=== PATIENT | female | born 1970 | race Caucasian/White ===

== ENCOUNTER 2017-05-02 11:37 | Observation (INO) ==
--- NOTE | 2017-05-02 11:58 | Emergency Department Note ---
Disposition Clinical Impression: Pneumonia Disposition: Admitted As Inpatient Condition: Good General Adult HPI - General Chief complaint: ED General Medical Stated complaint: Body aches and fever Time Seen by Provider: 05/02/17 11:50 Source: patient, family Limitations: no limitations - History of Present Illness Pain Scale: 10 - Related Data Home Medications Medication Instructions Recorded Confirmed ALPRAZolam [Xanax 0.5 MG Tablet] 0.5 mg PO BID PRN 05/02/17 05/02/17 Escitalopram [Lexapro] 20 mg PO BID 05/02/17 05/02/17 Gabapentin [Neurontin] 300 mg PO BID 05/02/17 05/02/17 HYDROcodone/Acet 5/325 mg [[place] 1 tab PO Q6H PRN 05/02/17 05/02/17 5-325 mg] Quetiapine Fumarate [SEROquel] 100 mg PO HS 05/02/17 05/02/17 Allergies Allergy/AdvReac Type Severity Reaction Status Date / Time prochlorperazine AdvReac Vomiting Verified 06/23/16 15:39 [From Compazine] tramadol AdvReac Anxiety Verified 05/02/17 11:40 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, depression 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 - Social History Smoking Status: Current every day smoker Smokeless Tobacco Status: No Alcohol use: Reports: none Drug use: Reports: none Physical Exam - General Limitations: no limitations General appearance: alert, in no apparent distress Course Vital Signs Temperature 99.4 F 05/02/17 11:40 Pulse Rate 111 05/02/17 11:40 Respiratory Rate 17 05/02/17 11:40 Blood Pressure 109/74 05/02/17 11:40 O2 Sat by Pulse Oximetry 94 05/02/17 11:40 Temperature 99.6 F 05/03/17 07:24 Pulse Rate 99 05/03/17 07:24 Respiratory Rate 16 05/03/17 07:24 Blood Pressure 121/83 05/03/17 07:24 O2 Sat by Pulse Oximetry 92 05/03/17 07:24 Oxygen Delivery Oxygen Delivery Room Air Medical Decision Making - Lab Data Result diagrams: 05/03/17 03:09 05/03/17 03:09 Lab Results 06/02/1305/02/17 05/02/17 Range/Units 12:14 12:14 12:14 WBC 7.4 (4.3-11.1) K/mcL RBC 3.90 (3.82-4.97) M/mcL Hgb 12.4 (11.5-15.4) g/dL Hct 36.0 (35.3-44.9) % MCV 92.3 (83.0-100.0) fL MCH 31.8 (28.0-33.3) pg MCHC 34.4 (31.6-35.5) g/dL RDW 13.3 (11.5-14.5) % Plt Count 235 (140-400) K/mcL MPV 8.8 L (9.4-12.4) fL Immature Gran % 0.4 (0-4) % Seg Neutrophils % 71.7 % Lymphocytes % 14.6 % Monocytes % 9.7 % Eosinophils % 3.2 % Basophils % 0.4 % Neutrophils # 5.3 (1.6-8.9) K/mcL Lymphocytes # 1.1 (0.6-4.6) K/mcL Monocytes # 0.7 (0.0-1.3) K/mcL Eosinophils # 0.2 (0.0-0.6) K/mcL Basophils # 0.0 (0.0-0.2) K/mcL Sodium 137 (136-145) mEq/L Potassium 3.9 (3.5-4.5) mEq/L Chloride 106 (98-109) mEq/L Carbon Dioxide 23 (19-29) mEq/L BUN 8 (7-20) mg/dL Creatinine 0.70 (0.57-1.11) mg/dL Est GFR ( Amer) > 60 (> 60) Est GFR (Non-Af Amer) > 60 (> 60) BUN/Creatinine Ratio 11 (6-26) Glucose 107 H (70-99) mg/dL Calculated Osmolality 283 (280-300) Calcium 8.6 (8.6-10.8) mg/dL Magnesium 1.8 (1.6-2.6) mg/dL Total Bilirubin 0.2 (0.2-1.2) mg/dL AST 84 H (5-34) Units/L ALT 82 H (0-55) Units/L Alkaline Phosphatase 172 H (38-126) Units/L Serum Total Protein 7.0 (6.0-8.3) g/dL Albumin 3.3 L (3.5-5.0) g/dL Globulin 3.7 H (2.4-3.5) g/dL Albumin/Globulin Ratio 0.9 L (1.1-2.2) Urine Color (Yellow) Urine Clarity (Clear) Urine pH (5.0-8.0) pH Units Ur Specific [place] (1.010-1.025) Urine Protein (Neg-Trace) mg/dL Urine Glucose (UA) (Normal) mg/dL Urine Ketones (Negative) mg/dL Urine Blood (Negative) Urine Nitrite (Negative) Urine Bilirubin (Negative) Urine Urobilinogen (Normal) mg/dL Ur Leukocyte Esterase (Negative) Urine Microscopic RBC (0-3) per hpf Urine Microscopic WBC (0-3) per hpf Ur Squamous Epith Cells (None-Few) per lpf Urine Bacteria (None-Few) per hpf Hyaline Casts (None-Few) per lpf Ur Culture Indicated? (NO) 05/02/17 Range/Units 13:01 WBC (4.3-11.1) K/mcL RBC (3.82-4.97) M/mcL Hgb (11.5-15.4) g/dL Hct (35.3-44.9) % MCV (83.0-100.0) fL MCH (28.0-33.3) pg MCHC (31.6-35.5) g/dL RDW (11.5-14.5) % Plt Count (140-400) K/mcL MPV (9.4-12.4) fL Immature Gran % (0-4) % Seg Neutrophils % % Lymphocytes % % Monocytes % % Eosinophils % % Basophils % % Neutrophils # (1.6-8.9) K/mcL Lymphocytes # (0.6-4.6) K/mcL Monocytes # (0.0-1.3) K/mcL Eosinophils # (0.0-0.6) K/mcL Basophils # (0.0-0.2) K/mcL Sodium (136-145) mEq/L Potassium (3.5-4.5) mEq/L Chloride (98-109) mEq/L Carbon Dioxide (19-29) mEq/L BUN (7-20) mg/dL Creatinine (0.57-1.11) mg/dL Est GFR ( Amer) (> 60) Est GFR (Non-Af Amer) (> 60) BUN/Creatinine Ratio (6-26) Glucose (70-99) mg/dL Calculated Osmolality (280-300) Calcium (8.6-10.8) mg/dL Magnesium (1.6-2.6) mg/dL Total Bilirubin (0.2-1.2) mg/dL AST (5-34) Units/L ALT (0-55) Units/L Alkaline Phosphatase (38-126) Units/L Serum Total Protein (6.0-8.3) g/dL Albumin (3.5-5.0) g/dL Globulin (2.4-3.5) g/dL Albumin/Globulin Ratio (1.1-2.2) Urine Color Yellow (Yellow) Urine Clarity Cloudy A (Clear) Urine pH 7.0 (5.0-8.0) pH Units Ur Specific [place] 1.010 (1.010-1.025) Urine Protein Negative (Neg-Trace) mg/dL Urine Glucose (UA) Normal (Normal) mg/dL Urine Ketones Negative (Negative) mg/dL Urine Blood Trace H (Negative) Urine Nitrite Negative (Negative) Urine Bilirubin Negative (Negative) Urine Urobilinogen Normal (Normal) mg/dL Ur Leukocyte Esterase Negative (Negative) Urine Microscopic RBC 0-3 (0-3) per hpf Urine Microscopic WBC 3-5 H (0-3) per hpf Ur Squamous Epith Cells Many H (None-Few) per lpf Urine Bacteria Moderate H (None-Few) per hpf Hyaline Casts None Seen (None-Few) per lpf Ur Culture Indicated? NO (NO) Critical Care Time Critical Care Time: Yes Total Critical Care Time: 30 Attestation: Patient presented with cough and fever. She was initially tachycardic and then later hypotensive. She has radiographic pneumonia. Sepsis pathway followed. Attestation Statement - Attestation Attestation: I examined this patient and my medical decision-making was reviewed with the LABEL FOLDER/PA/Advanced Practice Nurse/Resident Physician. I agree with the documented findings, disposition and treatment plan as described except to the extent set forth below. Face to face time provided Patient complains of a 2 day history of fever and body aches. Recent diagnosis of breast cancer but is not currently undergoing chemotherapy. Triage vitals reviewed by me indicating tachycardia and temperature of 99.4. Patient appears in no acute distress on exam
[2017-05-02] MEDS ORDERED: 0.9 % Sodium Chloride 1,000 ML IVC ONE ×2 (11:59→13:24)
[2017-05-02] MEDS ORDERED: Ondansetron 4 MG/2 ML VIAL IVP ONE ×2 (12:10→13:21)
[2017-05-02] MEDS ORDERED: Ketorolac 30 MG/ML VIAL IVP ONE (12:16)
[2017-05-02 12:20] LABS: Basophils % 0.4 %; Eosinophils # 0.2 K/mcL (0.0-0.6); Eosinophils % 3.2 %; Hemoglobin 12.4 g/dL (11.5-15.4); Immature Granulocytes % 0.4 % (0-4); Lymphocytes # 1.1 K/mcL (0.6-4.6); Lymphocytes % 14.6 %; Mean Corpuscular HGB Conc 34.4 g/dL (31.6-35.5); Mean Corpuscular Hemoglobin 31.8 pg (28.0-33.3); Mean Corpuscular Volume 92.3 fL (83.0-100.0); Mean Platelet Volume 8.8 fL (9.4-12.4); Monocytes # 0.7 K/mcL (0.0-1.3); Monocytes % 9.7 %; Neutrophils # 5.3 K/mcL (1.6-8.9); Platelet Count 235 K/mcL (140-400); Red Cell Distribution Width 13.3 % (11.5-14.5); Segmented Neutrophils % 71.7 %
--- NOTE | 2017-05-02 12:29 | Emergency Department Note ---
Disposition Clinical Impression: Pneumonia Qualifiers: Pneumonia type: due to unspecified organism Laterality: right Lung location: lower lobe of lung Qualified Code(s): J18.1 - Lobar pneumonia, unspecified organism Disposition: Admitted As Inpatient Condition: Good General Adult HPI - General Chief complaint: ED General Medical Stated complaint: Body aches and fever Time Seen by Provider: 05/02/17 11:50 Source: patient, family Limitations: no limitations Nursing Notes Reviewed: Yes Vital Signs Reviewed: Yes - History of Present Illness HPI Narrative: Patient here for evaluation of fever and bodyaches. Patient states symptoms started approximately 2 days ago. Patient was seen in ER last night with a negative strep swab. Patient continues to have symptoms and is having more pronounced cough. Patient was recently diagnosed with breast cancer approximately 3 days ago. She had biopsies done in over the phone she was told that it there are positive in needed oncology follow-up. She has a follow-up on for evaluation and likely initiation of chemotherapy. Pain Scale: 10 - Related Data Home Medications Medication Instructions Recorded Confirmed ALPRAZolam [Xanax 0.5 MG Tablet] 0.5 mg PO BID PRN 05/02/17 05/02/17 Escitalopram [Lexapro] 20 mg PO BID 05/02/17 05/02/17 Gabapentin [Neurontin] 300 mg PO BID 05/02/17 05/02/17 HYDROcodone/Acet 5/325 mg [[place] 1 tab PO Q6H PRN 05/02/17 05/02/17 5-325 mg] Allergies Allergy/AdvReac Type Severity Reaction Status Date / Time prochlorperazine AdvReac Vomiting Verified 06/23/16 15:39 [From Compazine] tramadol AdvReac Anxiety Verified 05/02/17 11:40 Review of Systems: CONSTITUTIONAL: Weakness, fatigue, fever, chills No weight loss, HEENT: Eyes: No visual changes. Ears, Nose, Throat: No hearing loss, difficulty talking or unable to swallow. SKIN: No rash or itching. CARDIOVASCULAR: No chest pain, chest pressure or chest discomfort. No palpitations or edema. RESPIRATORY: Cough without productive sputum GASTROINTESTINAL: No anorexia, nausea, vomiting or diarrhea. No abdominal pain or blood. GENITOURINARY: No burning on urination or hematuria. NEUROLOGICAL: No headache, dizziness, syncope, paralysis, ataxia, numbness or tingling in the extremities. No change in bowel or bladder control. MUSCULOSKELETAL: No muscle pain, back pain, joint pain or stiffness. 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 - Social History Smoking Status: Current every day smoker Smokeless Tobacco Status: No Alcohol use: Reports: none Drug use: Reports: none Physical Exam General appearance: NAD, conversant Eyes: anicteric sclerae, moist conjunctivae; PERRL HENT: Atraumatic; oropharynx clear with moist mucous membranes and no mucosal ulcerations Neck: Normal inspection; Trachea midline; FROM, supple Lungs: CTA, with normal respiratory effort and no intercostal retractions CV: RRR, no MRGs Abdomen: Soft, non-tender; no rebound or gaurding Extremities: No peripheral edema or extremity lymphadenopathy Skin: Normal temperature; no rash, ulcers or lesions Psych: Appropriate mood and affect Neuro: alert and oriented to person, place and time - General Limitations: no limitations General appearance: alert, in no apparent distress Course - Reevaluation(s) Reevaluation #1: Patient chest x-ray concerning for pneumonia. Patient has had 2 systolic readings in the 90s. Patient does not appear in distress at this time. However due to her meeting sepsis criteria bolus fluids and other orders regarding sepsis pathway placed by Dr. Woods. - Consultations Consultation #1: Dr. Woods discussed with hospitalist. Patient accepted Vital Signs Temperature 99.4 F 05/02/17 11:40 Pulse Rate 111 05/02/17 11:40 Respiratory Rate 17 05/02/17 11:40 Blood Pressure 109/74 05/02/17 11:40 O2 Sat by Pulse Oximetry 94 05/02/17 11:40 Temperature 99.4 F 05/02/17 11:40 Pulse Rate 89 05/02/17 13:32 Respiratory Rate 18 05/02/17 13:32 Blood Pressure 94/67 05/02/17 13:32 O2 Sat by Pulse Oximetry 96 05/02/17 13:32 Oxygen Delivery Oxygen Delivery Room Air Medical Decision Making - Lab Data Result diagrams: 05/02/17 12:14 05/02/17 12:14 Lab Results 05/02/17 05/02/17 05/02/17 Range/Units 12:14 12:14 12:14 WBC 7.4 (4.3-11.1) K/mcL RBC 3.90 (3.82-4.97) M/mcL Hgb 12.4 (11.5-15.4) g/dL Hct 36.0 (35.3-44.9) % MCV 92.3 (83.0-100.0) fL MCH 31.8 (28.0-33.3) pg MCHC 34.4 (31.6-35.5) g/dL RDW 13.3 (11.5-14.5) % Plt Count 235 (140-400) K/mcL MPV 8.8 L (9.4-12.4) fL Immature Gran % 0.4 (0-4) % Seg Neutrophils % 71.7 % Lymphocytes % 14.6 % Monocytes % 9.7 % Eosinophils % 3.2 % Basophils % 0.4 % Neutrophils # 5.3 (1.6-8.9) K/mcL Lymphocytes # 1.1 (0.6-4.6) K/mcL Monocytes # 0.7 (0.0-1.3) K/mcL Eosinophils # 0.2 (0.0-0.6) K/mcL Basophils # 0.0 (0.0-0.2) K/mcL Sodium 137 (136-145) mEq/L Potassium 3.9 (3.5-4.5) mEq/L Chloride 106 (98-109) mEq/L Carbon Dioxide 23 (19-29) mEq/L BUN 8 (7-20) mg/dL Creatinine 0.70 (0.57-1.11) mg/dL Est GFR ( Amer) > 60 (> 60) Est GFR (Non-Af Amer) > 60 (> 60) BUN/Creatinine Ratio 11 (6-26) Glucose 107 H (70-99) mg/dL Calculated Osmolality 283 (280-300) Calcium 8.6 (8.6-10.8) mg/dL Magnesium 1.8 (1.6-2.6) mg/dL Total Bilirubin 0.2 (0.2-1.2) mg/dL AST 84 H (5-34) Units/L ALT 82 H (0-55) Units/L Alkaline Phosphatase 172 H (38-126) Units/L Serum Total Protein 7.0 (6.0-8.3) g/dL Albumin 3.3 L (3.5-5.0) g/dL Globulin 3.7 H (2.4-3.5) g/dL Albumin/Globulin Ratio 0.9 L (1.1-2.2) Urine Color (Yellow) Urine Clarity (Clear) Urine pH (5.0-8.0) pH Units Ur Specific [place] (1.010-1.025) Urine Protein (Neg-Trace) mg/dL Urine Glucose (UA) (Normal) mg/dL Urine Ketones (Negative) mg/dL Urine Blood (Negative) Urine Nitrite (Negative) Urine Bilirubin (Negative) Urine Urobilinogen (Normal) mg/dL Ur Leukocyte Esterase (Negative) Urine Microscopic RBC (0-3) per hpf Urine Microscopic WBC (0-3) per hpf Ur Squamous Epith Cells (None-Few) per lpf Urine Bacteria (None-Few) per hpf Hyaline Casts (None-Few) per lpf Ur Culture Indicated? (NO) 05/02/17 Range/Units 13:01 WBC (4.3-11.1) K/mcL RBC (3.82-4.97) M/mcL Hgb (11.5-15.4) g/dL Hct (35.3-44.9) % MCV (83.0-100.0) fL MCH (28.0-33.3) pg MCHC (31.6-35.5) g/dL RDW (11.5-14.5) % Plt Count (140-400) K/mcL MPV (9.4-12.4) fL Immature Gran % (0-4) % Seg Neutrophils % % Lymphocytes % % Monocytes % % Eosinophils % % Basophils % % Neutrophils # (1.6-8.9) K/mcL Lymphocytes # (0.6-4.6) K/mcL Monocytes # (0.0-1.3) K/mcL Eosinophils # (0.0-0.6) K/mcL Basophils # (0.0-0.2) K/mcL Sodium (136-145) mEq/L Potassium (3.5-4.5) mEq/L Chloride (98-109) mEq/L Carbon Dioxide (19-29) mEq/L BUN (7-20) mg/dL Creatinine (0.57-1.11) mg/dL Est GFR ( Amer) (> 60) Est GFR (Non-Af Amer) (> 60) BUN/Creatinine Ratio (6-26) Glucose (70-99) mg/dL Calculated Osmolality (280-300) Calcium (8.6-10.8) mg/dL Magnesium (1.6-2.6) mg/dL Total Bilirubin (0.2-1.2) mg/dL AST (5-34) Units/L ALT (0-55) Units/L Alkaline Phosphatase (38-126) Units/L Serum Total Protein (6.0-8.3) g/dL Albumin (3.5-5.0) g/dL Globulin (2.4-3.5) g/dL Albumin/Globulin Ratio (1.1-2.2) Urine Color Yellow (Yellow) Urine Clarity Cloudy A (Clear) Urine pH 7.0 (5.0-8.0) pH Units Ur Specific [place] 1.010 (1.010-1.025) Urine Protein Negative (Neg-Trace) mg/dL Urine Glucose (UA) Normal (Normal) mg/dL Urine Ketones Negative (Negative) mg/dL Urine Blood Trace H (Negative) Urine Nitrite Negative (Negative) Urine Bilirubin Negative (Negative) Urine Urobilinogen Normal (Normal) mg/dL Ur Leukocyte Esterase Negative (Negative) Urine Microscopic RBC 0-3 (0-3) per hpf Urine Microscopic WBC 3-5 H (0-3) per hpf Ur Squamous Epith Cells Many H (None-Few) per lpf Urine Bacteria Moderate H (None-Few) per hpf Hyaline Casts None Seen (None-Few) per lpf Ur Culture Indicated? NO (NO)
[2017-05-02 12:33] LABS: Alanine Aminotransferase 82 Units/L (0-55); Albumin 3.3 g/dL (3.5-5.0); Albumin/Globulin Ratio 0.9 (1.1-2.2); Alkaline Phosphatase 172 Units/L (38-126); Aspartate Amino Transferase 84 Units/L (5-34); BUN/Creatinine Ratio 11 (6-26); Bilirubin,Total 0.2 mg/dL (0.2-1.2); Blood Urea Nitrogen 8 mg/dL (7-20); Calcium 8.6 mg/dL (8.6-10.8); Carbon Dioxide 23 mEq/L (19-29); Chloride 106 mEq/L (98-109); Globulin 3.7 g/dL (2.4-3.5); Glucose 107 mg/dL (70-99); Osmolality,Calculated 283 (280-300); Potassium 3.9 mEq/L (3.5-4.5); Sodium 137 mEq/L (136-145); eGFR For African Americans > 60 (> 60); eGFR For Non-African Americans > 60 (> 60)
[2017-05-02 13:12] LABS: Bilirubin,Urine Negative (Negative); Blood,Urine Trace (Negative); Clarity,Urine Cloudy (Clear); Color,Urine Yellow (Yellow); Glucose,Urine (UA) Normal (Normal); Ketones,Urine Negative (Negative); Leukocyte Esterase,Urine Negative (Negative); Nitrite,Urine Negative (Negative); Protein,Urine Negative (Neg-Trace); Urobilinogen,Urine Normal (Normal)
[2017-05-02 13:15] LABS: Bacteria,Urine Moderate per hpf (None-Few); Hyaline Casts,Urine None Seen per lpf (None-Few); RBC,Urine 0-3 per hpf (0-3); Squamous Epithelial Cell,Urine Many per lpf (None-Few)
[2017-05-02] MEDS ORDERED: *HR* HYDROmorphone (PF) 1 MG/ML SYRINGE IVP ONE (13:21)
[2017-05-02] MEDS ORDERED: Levofloxacin 750 MG/150 ML 750 MG/150 ML BAG IVPB ONE (13:24)
[2017-05-02] MEDS ORDERED: Naloxone 0.4 MG/ML INJ IVP PRN (13:59)
[2017-05-02] MEDS ORDERED: Ondansetron ODT 4 MG TAB.RAPDIS SL PRN (13:59)
[2017-05-02] MEDS ORDERED: *HR* HYDROcodone/Acet 5/325 mg TABLET PO PRN (13:59)
--- NOTE | 2017-05-02 14:39 | Internal Med History&Physical ---
<Jae Noonan P - Last Filed: 05/02/17 16:40> Date of Encounter: 05/02/17 Internal Medicine - H&P: HPI History of present illness: Ms. Sarkar is a 46 year old female Internal Medicine - H&P: Meds ALPRAZolam [Xanax 0.5 MG Tablet] 0.5 mg PO BID PRN 05/02/17 [History] Escitalopram [Lexapro] 20 mg PO BID 05/02/17 [History] Gabapentin [Neurontin] 300 mg PO BID 05/02/17 [History] HYDROcodone/Acet 5/325 mg [[place] 5-325 mg] 1 tab PO Q6H PRN 05/02/17 [History] Quetiapine Fumarate [SEROquel] 100 mg PO HS 05/02/17 [History] Allergies prochlorperazine [From Compazine] Adverse Reaction (Verified 06/23/16 15:39) Vomiting tramadol Adverse Reaction (Verified 05/02/17 11:40) Anxiety All Systems PM: A 10-system review of systems was performed and is negative for pertinent findings except as documented above in the HPI. - Constitutional Vitals: Temp Pulse Resp BP Pulse Ox 98.1 F 81 13 101/68 93 05/02/17 15:07 05/02/17 15:07 05/02/17 15:07 05/02/17 15:07 05/02/17 15:07 Internal Med - H&P Results - Labs CBC & Chem 7: 05/02/17 12:14 05/02/17 12:14 - Attending Attestation I examined this patient and my medical decision-making was reviewed with the SCIENCE FACULTY MEMBER/PA/Advanced Practice Nurse/Resident Physician. I agree with the documented findings, disposition and treatment plan as described except to the extent set forth below. <Daisy Carias M - Last Filed: 05/02/17 22:48> Date of Encounter: 05/02/17 Time of Encounter: 14:35 Assessment and Plan (1) Pneumonia Current visit: Yes Status: Acute Patient presented with fever, cough and body aches x 2 days. CXR showed RLL airspace disease favoring pneumonia. Patient mildly tachycardic. Blood pressure running 90s-100s/60-70s, but review of previous shows her blood pressure usually runs in this range. WBC normal at 7.4. 2L fluid bolus given in ED as well as Levaquin Levaquin 500mg IVP daily IV fluids 0.9NS at 100mL/hr duoneb treatments Q6hr prednisone 40mg daily titrate O2 to maintain oxygen saturation > 92%. Qualifiers: Pneumonia type: due to unspecified organism Laterality: right Lung location: lower lobe of lung Qualified Code(s): J18.1 - Lobar pneumonia, unspecified organism (2) Smoker Current visit: Yes Status: Acute Patient continues to smoke 1PPD. Discussed smoking cessation, patient would like to try to quit. Offered encouragement. Smoking cessation education and nicotine patch ordered. (3) Breast cancer Current visit: Yes Status: Acute Patient with recently diagnosed breast cancer, reportedly metastatic to lymph nodes. She has appointment scheduled on for discussion regarding treatment. Qualifiers: Breast location: unspecified site of breast Patient sex: female Laterality: left Qualified Code(s): C50.912 - Malignant neoplasm of unspecified site of left female breast (4) DVT prophylaxis Current visit: Yes Status: Acute anti-embolic stockings. Heparin 5000u SQ TID Internal Medicine - H&P: HPI Chief complaint: cough, fever, body aches Admitted From: Emergency Dept Plans for Post Hospital Care: Home History of present illness: Ms. Sarkar is a 46 year old female with history of kidney cancer status post surgical excision, recently diagnosed breast cancer presented to the emergency department today with complaints of cough, fever, and body aches. Patient reports that for the last 2 days she has had a nonproductive cough, fever, chills, body aches, and lightheadedness. She reports poor appetite, headache, and shortness of breath. She denies any chest pain, palpitations. Patient was seen in urgent care yesterday and was diagnosed with viral illness. Of note, patient has had a recent breast mass biopsy, and was told 2 days ago she has breast cancer and will need to have chemotherapy, and has an appointment on for this discussion. Evaluation in the emergency department today included a chest x-ray that showed right lower lobe airspace disease consistent with pneumonia. She is mildly tachycardic with heart rate in the 90s, blood pressure range 90 over 60s to 100s over 70s. White blood cell count was normal at 7.4. She was given 2 L of fluid bolus and started on Levaquin. On exam, patient alert and oriented, in no acute distress. Heart has regular rate and rhythm. Lungs have scattered fine crackles. Abdomen is diffusely mildly tender. Past Med Surg Social Fam HX - Past Medical History Medical history: cancer (kidney cancer s/p surgical excision, newly diagnosed breast cancer), renal disease, other Psychiatric history: bipolar, depression - Past Surgical History Surgical History: appendectomy, breast surgery (biopsy), cancer surgery (Renal cell carcinoma excision) - Social History Smoking Status: Current every day smoker (30 pack year history) Packs per day: 1 Smokeless Tobacco Status: No Alcohol use: none Drug use: none - Family History Mother Living Status: Still Living Hx Family Cardiac Disorders: Yes (CVA) Father Living Status: Still Living Hx Family Cancer: Yes All Systems PM: A 10-system review of systems was performed and is negative for pertinent findings except as documented above in the HPI. - Constitutional Constitutional: anorexia, chills, fever(s), no night sweats - EENT Eyes: no change in vision, no discharge, no pain, no photophobia Ears: no ear discharge, no ear pain, no tinnitus Nose, mouth and throat: nasal discharge, no dysphagia, no neck pain, no sore throat - Cardiovascular Cardiovascular ROS IM: dyspnea, lightheadedness, no chest pain, no diaphoresis, no palpitations, no syncope - Respiratory Respiratory: cough, dyspnea, no wheezing, no excessive phlegm production - Gastrointestinal Gastrointestinal: no abdominal pain, no diarrhea, no hematemesis, no hematochezia, no melena, no nausea, no vomiting - Genitourinary Genitourinary: no change in urinary stream, no dysuria, no flank pain, no hematuria - Musculoskeletal Musculoskeletal ROS IM: no numbness, no tingling - Integumentary Integumentary IM: no rash, no unusual bruising - Neurological Neurological ROS: no confusion, no convulsions, no focal weakness, no numbness, no tingling, no tremor(s) - Hematologic/Lymphatic Hematologic/Lymphatic: no easy bruising - Constitutional Vitals: Temp Pulse Resp BP Pulse Ox 99.4 F 89 18 102/72 96 05/02/17 11:40 05/02/17 13:32 05/02/17 14:26 05/02/17 14:26 05/02/17 13:32 General appearance: Present: A&O X 3, pleasant, no acute distress - Head Head exam: Present: atraumatic, normocephalic - Eye Eye exam: Present: PERRL, conjuntiva pink, sclera anicteric Pupils: Present: PERRL - Neck Neck exam general surgery: Present: supple, trachea midline. Absent: lymphadenopathy - Respiratory Respiratory exam: Present: rales (mild, scattered). Absent: accessory muscle use, rhonchi, wheezes - Cardiovascular Cardiovascular exam: Present: RRR, +S1, +S2. Absent: diastolic murmur, gallop, rubs, systolic murmur - GI/Abdominal GI/Abdominal exam: Present: normal bowel sounds, soft, tenderness (mild, diffuse ), no peritoneal signs. Absent: distended - Extremities Exam Extremities exam: Present: warm, radial pulses palpable and symetrical. Absent : calf tenderness, cyanotic, pedal edema - Neurological Exam Neurological exam: Present: CN II-XII intact, oriented X3, no focal deficits. Absent: facial droop, speech deficit - Skin Skin exam: Present: dry, intact Internal Med - H&P Results - Labs CBC & Chem 7: 05/02/17 12:14 05/02/17 12:14 Labs: All Lab Results (24 Hours) 05/02/17 05/02/17 05/02/17 Range/Units 12:14 12:14 12:14 WBC 7.4 (4.3-11.1) K/mcL RBC 3.90 (3.82-4.97) M/mcL Hgb 12.4 (11.5-15.4) g/dL Hct 36.0 (35.3-44.9) % MCV 92.3 (83.0-100.0) fL MCH 31.8 (28.0-33.3) pg MCHC 34.4 (31.6-35.5) g/dL RDW 13.3 (11.5-14.5) % Plt Count 235 (140-400) K/mcL MPV 8.8 L (9.4-12.4) fL Immature Gran % 0.4 (0-4) % Seg Neutrophils % 71.7 % Lymphocytes % 14.6 % Monocytes % 9.7 % Eosinophils % 3.2 % Basophils % 0.4 % Neutrophils # 5.3 (1.6-8.9) K/mcL Lymphocytes # 1.1 (0.6-4.6) K/mcL Monocytes # 0.7 (0.0-1.3) K/mcL Eosinophils # 0.2 (0.0-0.6) K/mcL Basophils # 0.0 (0.0-0.2) K/mcL Sodium 137 (136-145) mEq/L Potassium 3.9 (3.5-4.5) mEq/L Chloride 106 (98-109) mEq/L Carbon Dioxide 23 (19-29) mEq/L BUN 8 (7-20) mg/dL Creatinine 0.70 (0.57-1.11) mg/dL Est GFR ( Amer) > 60 (> 60) Est GFR (Non-Af Amer) > 60 (> 60) BUN/Creatinine Ratio 11 (6-26) Glucose 107 H (70-99) mg/dL Calculated Osmolality 283 (280-300) Calcium 8.6 (8.6-10.8) mg/dL Magnesium 1.8 (1.6-2.6) mg/dL Total Bilirubin 0.2 (0.2-1.2) mg/dL AST 84 H (5-34) Units/L ALT 82 H (0-55) Units/L Alkaline Phosphatase 172 H (38-126) Units/L Serum Total Protein 7.0 (6.0-8.3) g/dL Albumin 3.3 L (3.5-5.0) g/dL Globulin 3.7 H (2.4-3.5) g/dL Albumin/Globulin Ratio 0.9 L (1.1-2.2) Urine Color (Yellow) Urine Clarity (Clear) Urine pH (5.0-8.0) pH Units Ur Specific [place] (1.010-1.025) Urine Protein (Neg-Trace) mg/dL Urine Glucose (UA) (Normal) mg/dL Urine Ketones (Negative) mg/dL Urine Blood (Negative) Urine Nitrite (Negative) Urine Bilirubin (Negative) Urine Urobilinogen (Normal) mg/dL Ur Leukocyte Esterase (Negative) Urine Microscopic RBC (0-3) per hpf Urine Microscopic WBC (0-3) per hpf Ur Squamous Epith Cells (None-Few) per lpf Urine Bacteria (None-Few) per hpf Hyaline Casts (None-Few) per lpf Ur Culture Indicated? (NO) 05/02/17 Range/Units 13:01 WBC (4.3-11.1) K/mcL RBC (3.82-4.97) M/mcL Hgb (11.5-15.4) g/dL Hct (35.3-44.9) % MCV (83.0-100.0) fL MCH (28.0-33.3) pg MCHC (31.6-35.5) g/dL RDW (11.5-14.5) % Plt Count (140-400) K/mcL MPV (9.4-12.4) fL Immature Gran % (0-4) % Seg Neutrophils % % Lymphocytes % % Monocytes % % Eosinophils % % Basophils % % Neutrophils # (1.6-8.9) K/mcL Lymphocytes # (0.6-4.6) K/mcL Monocytes # (0.0-1.3) K/mcL Eosinophils # (0.0-0.6) K/mcL Basophils # (0.0-0.2) K/mcL Sodium (136-145) mEq/L Potassium (3.5-4.5) mEq/L Chloride (98-109) mEq/L Carbon Dioxide (19-29) mEq/L BUN (7-20) mg/dL Creatinine (0.57-1.11) mg/dL Est GFR ( Amer) (> 60) Est GFR (Non-Af Amer) (> 60) BUN/Creatinine Ratio (6-26) Glucose (70-99) mg/dL Calculated Osmolality (280-300) Calcium (8.6-10.8) mg/dL Magnesium (1.6-2.6) mg/dL Total Bilirubin (0.2-1.2) mg/dL AST (5-34) Units/L ALT (0-55) Units/L Alkaline Phosphatase (38-126) Units/L Serum Total Protein (6.0-8.3) g/dL Albumin (3.5-5.0) g/dL Globulin (2.4-3.5) g/dL Albumin/Globulin Ratio (1.1-2.2) Urine Color Yellow (Yellow) Urine Clarity Cloudy A (Clear) Urine pH 7.0 (5.0-8.0) pH Units Ur Specific [place] 1.010 (1.010-1.025) Urine Protein Negative (Neg-Trace) mg/dL Urine Glucose (UA) Normal (Normal) mg/dL Urine Ketones Negative (Negative) mg/dL Urine Blood Trace H (Negative) Urine Nitrite Negative (Negative) Urine Bilirubin Negative (Negative) Urine Urobilinogen Normal (Normal) mg/dL Ur Leukocyte Esterase Negative (Negative) Urine Microscopic RBC 0-3 (0-3) per hpf Urine Microscopic WBC 3-5 H (0-3) per hpf Ur Squamous Epith Cells Many H (None-Few) per lpf Urine Bacteria Moderate H (None-Few) per hpf Hyaline Casts None Seen (None-Few) per lpf Ur Culture Indicated? NO (NO) - Diagnostic Studies Chest x-ray Additional comments: Chest X-Ray 05/02/17 12:09 IMPRESSION: 1. Right lower lobe airspace disease favoring pneumonia. Recommend chest radiograph in 8 weeks to confirm resolution. D/ / Duglas Sampson MD / Duglas Sampson MD Interpreting Provider: Duglas Sampson MD
[2017-05-02] MEDS: *HR* HYDROcodone/Acet 5/325 mg TABLET PO PRN ×2 (16:11→22:13)
[2017-05-02] MEDS: Nicotine 21 MG PATCH.TD24 TD SCH (16:13)
[2017-05-02] MEDS: *HR* Morphine 2 MG/ML SYRINGE IVP PRN ×2 (17:04→21:17)
[2017-05-02] MEDS: ALPRAZolam 0.5 MG TABLET PO PRN (17:16)
[2017-05-02] MEDS: Ipratropium/Albuterol Neb 3 ML IH SCH ×2 (17:32→22:45)
[2017-05-02] MEDS: 0.9 % Sodium Chloride 1,000 ML IVC SCH (17:50)
[2017-05-02] MEDS: Acetaminophen 325 MG TABLET PO PRN (19:36)
[2017-05-02] MEDS: Gabapentin 300 MG CAPSULE PO SCH (20:55)
[2017-05-03] MEDS: *HR* HYDROmorphone 2 MG/ML SYRINGE IVP PRN ×3 (01:20→18:25)
[2017-05-03] MEDS: Acetaminophen 325 MG TABLET PO PRN ×2 (01:43→23:29)
[2017-05-03] MEDS: 0.9 % Sodium Chloride 1,000 ML IVC SCH ×2 (03:24→17:47)
[2017-05-03] MEDS: ALPRAZolam 0.5 MG TABLET PO PRN ×2 (03:28→16:31)
[2017-05-03] MEDS: Ipratropium/Albuterol Neb 3 ML IH SCH ×4 (03:36→22:08)
[2017-05-03 03:44] LABS: Basophils % 0.6 %; Eosinophils # 0.1 K/mcL (0.0-0.6); Hematocrit 33.7 % (35.3-44.9); Hemoglobin 11.1 g/dL (11.5-15.4); Immature Granulocytes % 0.3 % (0-4); Lymphocytes # 1.1 K/mcL (0.6-4.6); Mean Corpuscular HGB Conc 32.9 g/dL (31.6-35.5); Mean Corpuscular Hemoglobin 31.5 pg (28.0-33.3); Mean Corpuscular Volume 95.7 fL (83.0-100.0); Mean Platelet Volume 9.4 fL (9.4-12.4); Monocytes # 0.6 K/mcL (0.0-1.3); Monocytes % 7.8 %; Neutrophils # 5.2 K/mcL (1.6-8.9); Platelet Count 200 K/mcL (140-400); Red Blood Count 3.52 M/mcL (3.82-4.97); Red Cell Distribution Width 13.8 % (11.5-14.5); Segmented Neutrophils % 73.3 %
[2017-05-03 03:59] LABS: BUN/Creatinine Ratio 9 (6-26); Blood Urea Nitrogen 7 mg/dL (7-20); Calcium 7.8 mg/dL (8.6-10.8); Carbon Dioxide 27 mEq/L (19-29); Chloride 108 mEq/L (98-109); Glucose 95 mg/dL (70-99); Osmolality,Calculated 288 (280-300); Potassium 4.1 mEq/L (3.5-4.5); Sodium 140 mEq/L (136-145); eGFR For African Americans > 60 (> 60); eGFR For Non-African Americans > 60 (> 60)
[2017-05-03] MEDS: *HR* HYDROcodone/Acet 5/325 mg TABLET PO PRN ×2 (06:20→13:32)
[2017-05-03] MEDS: Nicotine 21 MG PATCH.TD24 TD SCH (07:47)
[2017-05-03] MEDS: Levofloxacin 500 MG/100 ML 500 MG/100 ML BAG IVPB SCH (07:48)
[2017-05-03] MEDS: predniSONE 20 MG TABLET PO SCH (07:49)
[2017-05-03] MEDS: Gabapentin 300 MG CAPSULE PO SCH ×2 (07:49→20:47)
[2017-05-03] MEDS ORDERED: Ketorolac 30 MG/ML VIAL IVP ONE (10:39)
[2017-05-03] MEDS ORDERED: *HR* Promethazine 25 MG/ML VIAL IVP PRN (10:40)
[2017-05-03] MEDS ORDERED: Ondansetron 4 MG/2 ML VIAL IVP PRN (10:41)
[2017-05-03] MEDS ORDERED: *HR* LORazepam 2 MG/ML VIAL IVP PRN (10:41)
--- NOTE | 2017-05-03 11:06 | Internal Med Progress Note ---
Date of Encounter: 05/03/17 Time of Encounter: 10:15 - Assessment and plan (1) Breast cancer Current Visit: Yes Status: Acute Assessment and plan: This is a new diagnosis for the patient. She is scheduled to followup with surgery Dr Davies later this week to discuss possible treatments. I have spoke to Oncology Dr Santos who recommended scanning the patient's head, chest, abdomen and he will see her in consultation tomorrow. Patient currently has a severe headache that has been refractory to pain medication. She also has transaminitis which is new for her. Plain films of chest also revealed possible pneumonia to right lower lobe, CT of ordered for better imaging. It is Thursday and MRI is not available, we will proceed with head CT. Brain MRI tomorrow if indicated. Qualifiers: Breast location: unspecified site of breast Patient sex: female Laterality: left Qualified Code(s): C50.912 - Malignant neoplasm of unspecified site of left female breast (2) Pneumonia Current Visit: Yes Status: Acute Assessment and plan: No recent admissions, continue levofloxacin. Plain films with right lower lobe pneumonia, obtain a chest CT for better imaging. She is tolerating room air at this time. She also appears to have a lengthy smoking history but has not been formally diagnosed with COPD. Continue bronchodilators and prednisone. ITS Impressions Chest X-Ray 05/02/17 12:09 IMPRESSION: 1. Right lower lobe airspace disease favoring pneumonia. Recommend chest radiograph in 8 weeks to confirm resolution. D/ / Duglas Sampson MD / Duglas Sampson MD Interpreting Provider: Duglas Sampson MD Qualifiers: Pneumonia type: due to unspecified organism Laterality: right Lung location: lower lobe of lung Qualified Code(s): J18.1 - Lobar pneumonia, unspecified organism (3) Headache Current Visit: Yes Status: Acute Assessment and plan: Patient is endorsing a severe, intractable headache. She states that a lot of takes the edge off but then the headache comes back severe. She states her whole head hurts and she is having sharp, stabbing pain to the left side. Patient states she always has blurred vision without her glasses and denies a change to her vision. She is endorsing photo and phonophobia. She is lying supine in bed with TV off and light off in her room. She appears miserable. We will give migraine cocktail, Compazine allergy noted, we will substitute Phenergan combined with Toradol and diphenhydramine. Continue pain and nausea medication. Given her history of kidney cancer and recent diagnosis of breast cancer, concern for possible metastasis. Head CT with contrast ordered. Cannot get brain MRI on Thursday, if indicated tomorrow, will order. (4) Renal cell carcinoma of right kidney Current Visit: Yes Status: Resolved Assessment and plan: Patient had renal cell carcinoma in her right kidney status post right-sided partial nephrectomy in 2013. She stated that she followed up for repeat scans and was cleared shortly after the surgery. No further scans or follow-up. (5) History of prescription drug abuse Current Visit: Yes Status: Chronic Assessment and plan: In review of her chart in [facility], patient has a very lengthy history of removal from primary care practices for controlled substance prescription issues. She was removed from Dr Juan Estrada's practice in 2011 after an incident from an allegedly stolen prescription of Percocet. She was also removed from Dr. Lan Miranda in 2012 regarding activities about controlled substances. She is also earlier this year and November 2016 by Keny Stanley of [facility] and he left a message for her to no longer receive Percocet or Vicodin prescriptions. (6) Anxiety Current Visit: Yes Status: Chronic Assessment and plan: Her home Xanax is not working and the patient is incredibly upset. IV lorazepam as needed for breakthrough anxiety. (7) Transaminitis Current Visit: Yes Status: Acute Assessment and plan: This appears new for this patient. With her history of renal cell carcinoma and newly diagnosed breast cancer, concern for possible metastasis. Spoke to oncology, will scan head, chest, abdomen. (8) Smoker Current Visit: Yes Status: Chronic Assessment and plan: Declines counseling at this time. (9) DVT prophylaxis Current Visit: Yes Status: Acute Assessment and plan: Subcutaneous heparin ordered - Time Spent With Patient Greater than 35 minutes (chart review, conversation with ileana and margy, c/s to oncology) - Subjective Interval history: Patient seen and examined. On examination, patient resting supine in bed with her eyes closed. She is awake and alert and oriented 3. She complains of a severe headache described as pain all over her head but with sharp stabbing pains to the left side of her head. She is also endorsing nausea. Patient stating she is miserable. She states the Dilaudid took the edge off for a little bit but "the pain came right back." - Constitutional Vitals: Temp Pulse Resp BP Pulse Ox 98.7 F 92 16 115/74 96 05/03/17 10:53 05/03/17 10:53 05/03/17 10:53 05/03/17 10:53 05/03/17 10:53 General appearance: Present: mild distress (2/2 pain), A&O X 3, pleasant, answers questions appropriately - Head Head exam: Present: atraumatic, normocephalic - Eye Eye exam: Present: PERRL, conjuntiva pink, sclera anicteric Pupils: Present: PERRL - Neck Neck exam general surgery: Present: supple, trachea midline. Absent: lymphadenopathy - Respiratory Respiratory exam: Present: chest wall tenderness, decreased breath sounds. Absent: accessory muscle use, rales, respiratory distress, rhonchi, wheezes - Cardiovascular Cardiovascular exam: Present: RRR, +S1, +S2. Absent: diastolic murmur, gallop, rubs, systolic murmur - GI/Abdominal GI/Abdominal exam: Present: normal bowel sounds, soft, no peritoneal signs. Absent: distended, tenderness - Extremities Exam Extremities exam: Present: warm, radial pulses palpable and symetrical. Absent : calf tenderness, cyanotic, pedal edema - Neurological Exam Neurological exam: Present: alert, CN II-XII intact, oriented X3, no focal deficits, strengths equal and symetr throughout. Absent: pronater drift, facial droop, speech deficit - Skin Skin exam: Present: diaphoretic, intact, pallor, warm Internal Medicine: Result - Labs CBC & Chem 7: 05/03/17 03:09 05/03/17 03:09 Labs: Short CBC 05/03/17 Range/Units 03:09 WBC 7.1 (4.3-11.1) K/mcL Hgb 11.1 L (11.5-15.4) g/dL Hct 33.7 L (35.3-44.9) % Plt Count 200 (140-400) K/mcL Neutrophils # 5.2 (1.6-8.9) K/mcL BMP 05/03/17 03:09 Sodium 140 Potassium 4.1 Chloride 108 Carbon Dioxide 27 BUN 7 Creatinine 0.78 Glucose 95 Calcium 7.8 L - Impressions Impressions Head CT 05/02/17 14:16 IMPRESSION: No evidence of acute intracranial abnormality. If clinical symptomatology persists, follow-up MRI examination may be helpful for more complete evaluation. D/ / 05/02/2017 17:00:15 Mahamed Henderson MD / earnold Interpreting Provider: Mahamed Henderson MD Consult Discharge Plan - Plan Referrals: NO,PCP [Primary Care Provider] -
--- NOTE | 2017-05-03 12:58 | Oncology Inp Consult Note ---
Date of Encounter: 05/03/17 Time of Encounter: 12:35 - Data of Consult Patient: new to practice Consult date: 05/03/17 Requesting Physician: Eva Casas Primary Care Provider: PCP NO - Consult Narrative Reason for consult: Unexplained headaches, newly diagnosed breast cancer. History of present illness: Ms. Sarkar is a 46 year old who is currently hospitalized with generalized, multisystem symptoms including headaches. She is new to oncology. She has recently been diagnosed with breast cancer based on biopsy from 04/28/17 which showed a grade 3 invasive ductal carcinoma in a 3:00 left breast lesion as well as left axillary node. Tumor is ER/NC negative and HER-2 equivocal. FISH testing is pending. She initially presented to the emergency room with a self palpated left breast mass and had a chest CT 04/24/[address] Davies which revealed a 3.6 cm mass in the lateral aspect of the left breast associated with axillary lymphadenopathy concerning for breast malignancy. There was additional concern about a 5 mm noncalcified left lower lobe nodule which is stable since 2013 and possibly benign. There is stable left adrenal gland adenoma. Nondisplaced, subacute-appearing fracture in the lateral aspect of the right sixth rib. She subsequently had dedicated breast imaging and a breast biopsy from 04/28/17 which is noted above. She had a second biopsy of the right breast 8:00 lesion on 05/01/17 and pathology is pending. She has discussed the results of her positive biopsy with Dr. Davies and per patient, plan is for her to be seen in the multidisciplinary breast clinic next . Patient is currently hospitalized for generalized multisystem symptoms including general body aches, intractable headaches, cough, fever. Oncology is consulted re: evolution and recommendations for management of patient with generalized multisystem symptoms in the setting of recently diagnosed breast cancer. Eva Esquivel [employer] CONTAINER FILLER with Hospital team was kind enough the discussed patient's case with me regarding consult question. Patient seen and examined at bedside with present. She continues to have generalized multisystem symptoms predominantly pain which is mostly in her back in addition to ongoing headaches. I reviewed her records extensively for details of clinical background and ongoing care by hospital team. Noncontrast head CT on admission was negative for intracranial abnormality. She is scheduled for systemic imaging later today. On reviewing her records, she evidently had a history of right-sided kidney cancer and had a right partial nephrectomy by Dr. Napoles in December 2013 which confirmed a 1 cm, Karon grade 3, clear cell kidney cancer. T1a likely stage I with no other high risk features. Her most recent abdomen CT from 07/10/16 did not show any evidence of recurrent or residual malignancy. Rest of past medical, surgical, family, social history detailed below and verified with patient today. Review of systems: 12 point review of systems performed with patient and positive findings noted in history of present illness. All other systems are negative: Physical exam: Vital Signs Temp 98.7 F 05/03/17 10:53 Pulse 92 05/03/17 10:53 Resp 16 05/03/17 10:53 BP 115/74 05/03/17 10:53 Pulse Ox 96 05/03/17 10:53 GENERAL: Alert and oriented, acutely ill appearing. Mental Status: Affect appropriate for circumstances HEENT: Sclerae anicteric. No mucositis or thrush. No other oral or pharyngeal lesions or erythema. Skin: No rashes or petechiae. No evidence of skin malignancy Lymph nodes: No cervical, supraclavicular, axillary, or inguinal adenopathy. Lungs: Clear to auscultation bilaterally. Clear to percussion bilaterally. Cardiovascular: Regular rate and rhythm. No gallops, murmurs, or rubs. Abdomen: Soft, nontender; No organomegaly or masses palpable. Extremities: No edema. No calf swelling or tenderness. No joint deformity. Neurologic: Alert, normal gait; no focal weakness or sensory abnormalities. Results: Laboratory Last Values WBC 7.1 K/mcL (4.3-11.1) 05/03/17 03:09 RBC 3.52 M/mcL (3.82-4.97) L 05/03/17 03:09 Hgb 11.1 g/dL (11.5-15.4) L 05/03/17 03:09 Hct 33.7 % (35.3-44.9) L 05/03/17 03:09 MCV 95.7 fL (83.0-100.0) 05/03/17 03:09 MCH 31.5 pg (28.0-33.3) 05/03/17 03:09 MCHC 32.9 g/dL (31.6-35.5) 05/03/17 03:09 RDW 13.8 % (11.5-14.5) 05/03/17 03:09 Plt Count 200 K/mcL (140-400) 05/03/17 03:09 MPV 9.4 fL (9.4-12.4) 05/03/17 03:09 Immature Gran % 0.3 % (0-4) 05/03/17 03:09 Seg Neutrophils % 73.3 % 05/03/17 03:09 Lymphocytes % 16.0 % 05/03/17 03:09 Monocytes % 7.8 % 05/03/17 03:09 Eosinophils % 2.0 % 05/03/17 03:09 Basophils % 0.6 % 05/03/17 03:09 Neutrophils # 5.2 K/mcL (1.6-8.9) 05/03/17 03:09 Lymphocytes # 1.1 K/mcL (0.6-4.6) 05/03/17 03:09 Monocytes # 0.6 K/mcL (0.0-1.3) 05/03/17 03:09 Eosinophils # 0.1 K/mcL (0.0-0.6) 05/03/17 03:09 Basophils # 0.0 K/mcL (0.0-0.2) 05/03/17 03:09 Sodium 140 mEq/L (136-145) 05/03/17 03:09 Potassium 4.1 mEq/L (3.5-4.5) 05/03/17 03:09 Chloride 108 mEq/L (98-109) 05/03/17 03:09 Carbon Dioxide 27 mEq/L (19-29) 05/03/17 03:09 BUN 7 mg/dL (7-20) 05/03/17 03:09 Creatinine 0.78 mg/dL (0.57-1.11) 05/03/17 03:09 Est GFR ( Amer) > 60 (> 60) 05/03/17 03:09 Est GFR (Non-Af Amer) > 60 (> 60) 05/03/17 03:09 BUN/Creatinine Ratio 9 (6-26) 05/03/17 03:09 Glucose 95 mg/dL (70-99) 05/03/17 03:09 Calculated Osmolality 288 (280-300) 05/03/17 03:09 Lactic Acid 0.9 mmol/L (0.5-2.2) 05/02/17 17:04 Calcium 7.8 mg/dL (8.6-10.8) L 05/03/17 03:09 Magnesium 1.8 mg/dL (1.6-2.6) 05/02/17 12:14 Total Bilirubin 0.2 mg/dL (0.2-1.2) 05/02/17 12:14 AST 84 Units/L (5-34) H 05/02/17 12:14 ALT 82 Units/L (0-55) H 05/02/17 12:14 Alkaline Phosphatase 172 Units/L (38-126) H 05/02/17 12:14 Serum Total Protein 7.0 g/dL (6.0-8.3) 05/02/17 12:14 Albumin 3.3 g/dL (3.5-5.0) L 05/02/17 12:14 Globulin 3.7 g/dL (2.4-3.5) H 05/02/17 12:14 Albumin/Globulin Ratio 0.9 (1.1-2.2) L 05/02/17 12:14 Urine Color Yellow (Yellow) 05/02/17 13:01 Urine Clarity Cloudy (Clear) A 05/02/17 13:01 Urine pH 7.0 pH Units (5.0-8.0) 05/02/17 13:01 Ur Specific [place] 1.010 (1.010-1.025) 05/02/17 13:01 Urine Protein Negative mg/dL (Neg-Trace) 05/02/17 13:01 Urine Glucose (UA) Normal mg/dL (Normal) 05/02/17 13:01 Urine Ketones Negative mg/dL (Negative) 05/02/17 13:01 Urine Blood Trace (Negative) H 05/02/17 13:01 Urine Nitrite Negative (Negative) 05/02/17 13:01 Urine Bilirubin Negative (Negative) 05/02/17 13:01 Urine Urobilinogen Normal mg/dL (Normal) 05/02/17 13:01 Ur Leukocyte Esterase Negative (Negative) 05/02/17 13:01 Urine Microscopic RBC 0-3 per hpf (0-3) 05/02/17 13:01 Urine Microscopic WBC 3-5 per hpf (0-3) H 05/02/17 13:01 Ur Squamous Epith Cells Many per lpf (None-Few) H 05/02/17 13:01 Urine Bacteria Moderate per hpf (None-Few) H 05/02/17 13:01 Hyaline Casts None Seen per lpf (None-Few) 05/02/17 13:01 Ur Culture Indicated? NO (NO) 05/02/17 13:01 Radiographic studies: Chest X-Ray 05/02/17 12:09 IMPRESSION: 1. Right lower lobe airspace disease favoring pneumonia. Recommend chest radiograph in 8 weeks to confirm resolution. D/ / Duglas Sampson MD / Duglas Sampson MD Interpreting Provider: Duglas Sampson MD Head CT 05/03/17 11:14 IMPRESSION: No acute intracranial abnormality. No evidence of intracranial metastatic disease. D/ / Benji Stokes MD / Benji Stokes MD Interpreting Provider: Benji Stokes MD I personally reviewed and interpreted patient's most recent imaging studies dated 04/24-05/02/17. I discussed the findings with the patient today. Impression/recommendations: Newly diagnosed, left-sided breast cancer: Biopsy confirmed morgan involvement. Pathology is pending from more recent biopsy of a right breast lesion from 05-16. She is alert established with Dr. Davies and she informs me that the plan is to have her established with medical oncologist in the near future. I anticipate that we will be discussing her case in multidisciplinary breast conference within the next week for multimodality treatment recommendations. Generalized multisystem symptoms including body aches and headaches: Given the widespread nature of her symptoms and relatively unremarkable lab, I' m not sure if her symptoms are explained on the basis of her underlying malignancy. Given prior diagnosis of 2 separate malignancies, think is reasonable to complete systemic imaging for evaluation and will recommend CT chest, abdomen, pelvis and contrast enhanced brain imaging with either CT or MRI for further evaluation. Her symptoms and I will be on the basis of her newly diagnosed pneumonia for which is being treated appropriately by the hospital team. We'll follow the patient along side you during this hospitalization but please do not hesitate to call regarding interval hematologic questions as they arise. Thank you for your excellent ongoing care for allowing us to see [default value ] while in-house. This report was created using voice recognition software and may contain errors. It was signed but not edited to expedite communication. Corrections will be made in a separate addendum as needed. Past Med Surg Social Fam HX - Past Medical History Medical history: cancer, renal disease, other Psychiatric history: bipolar, depression - Past Surgical History Surgical History: appendectomy, breast surgery (biopsy), cancer surgery (Renal cell carcinoma excision) - Social History Smoking Status: Current every day smoker Packs per day: 1 Smokeless Tobacco Status: No Alcohol use: none Drug use: none - Family History Mother Living Status: Still Living Hx Family Cardiac Disorders: Yes (CVA) Father Living Status: Still Living Hx Family Cancer: Yes Medications and Allergies ALPRAZolam [Xanax 0.5 MG Tablet] 0.5 mg PO BID PRN 05/02/17 [History] Escitalopram [Lexapro] 20 mg PO BID 05/02/17 [History] Gabapentin [Neurontin] 300 mg PO BID 05/02/17 [History] HYDROcodone/Acet 5/325 mg [[place] 5-325 mg] 1 tab PO Q6H PRN 05/02/17 [History] Quetiapine Fumarate [SEROquel] 100 mg PO HS 05/02/17 [History] Allergies prochlorperazine [From Compazine] Adverse Reaction (Verified 06/23/16 15:39) Vomiting tramadol Adverse Reaction (Verified 05/02/17 11:40) Anxiety Oncology - Exam - Constitutional Vitals: Temp Pulse Resp BP Pulse Ox 98.7 F 92 16 115/74 96 05/03/17 10:53 05/03/17 10:53 05/03/17 10:53 05/03/17 10:53 05/03/17 10:53 Oncology - Results - Labs Labs: Short CBC 05/03/17 Range/Units 03:09 WBC 7.1 (4.3-11.1) K/mcL Hgb 11.1 L (11.5-15.4) g/dL Hct 33.7 L (35.3-44.9) % Plt Count 200 (140-400) K/mcL Neutrophils # 5.2 (1.6-8.9) K/mcL BMP 05/03/17 03:09 Sodium 140 Potassium 4.1 Chloride 108 Carbon Dioxide 27 BUN 7 Creatinine 0.78 Glucose 95 Calcium 7.8 L Consult Discharge Plan - Plan Referrals: NO,PCP [Primary Care Provider] -
[2017-05-03] MEDS ORDERED: Ketorolac 30 MG/ML VIAL IVP PRN (16:45)
[2017-05-03] MEDS: *HR* Heparin 5,000 UNIT/ML VIAL SQ SCH (17:51)
[2017-05-04] MEDS: Ipratropium/Albuterol Neb 3 ML IH SCH ×2 (03:31→10:16)
[2017-05-04] MEDS: 0.9 % Sodium Chloride 1,000 ML IVC SCH ×2 (04:29→05:48)
[2017-05-04] MEDS: ALPRAZolam 0.5 MG TABLET PO PRN ×2 (04:29→10:10)
[2017-05-04] MEDS: *HR* Heparin 5,000 UNIT/ML VIAL SQ SCH (04:30)
[2017-05-04 05:24] LABS: Eosinophils # 0.1 K/mcL (0.0-0.6); Hematocrit 33.3 % (35.3-44.9); Mean Corpuscular Volume 93.8 fL (83.0-100.0); Mean Platelet Volume 9.2 fL (9.4-12.4); Platelet Count 186 K/mcL (140-400); Red Blood Count 3.55 M/mcL (3.82-4.97); Red Cell Distribution Width 13.2 % (11.5-14.5)
[2017-05-04 05:35] LABS: Alanine Aminotransferase 50 Units/L (0-55); Albumin 2.8 g/dL (3.5-5.0); Albumin/Globulin Ratio 0.9 (1.1-2.2); Alkaline Phosphatase 143 Units/L (38-126); Aspartate Amino Transferase 39 Units/L (5-34); BUN/Creatinine Ratio 16 (6-26); Bilirubin,Direct 0.1 mg/dL (0.0-0.5); Bilirubin,Indirect 0.1 mg/dL (0.0-1.2); Bilirubin,Total 0.2 mg/dL (0.2-1.2); Blood Urea Nitrogen 10 mg/dL (7-20); Calcium 8.2 mg/dL (8.6-10.8); Carbon Dioxide 25 mEq/L (19-29); Chloride 107 mEq/L (98-109); Globulin 3.2 g/dL (2.4-3.5); Glucose 105 mg/dL (70-99); Lipase 23 Units/L (8-78); Osmolality,Calculated 287 (280-300); Sodium 139 mEq/L (136-145); eGFR For African Americans > 60 (> 60); eGFR For Non-African Americans > 60 (> 60)
[2017-05-04 06:06] LABS: Lymphocytes # 1.1 K/mcL (0.6-4.6); Monocytes # 0.2 K/mcL (0.0-1.3); Neutrophils # 3.3 K/mcL (1.6-8.9)
[2017-05-04 06:07] LABS: Anisocytosis 1+ (Not Present); Platelet Estimate Normal (Normal)
[2017-05-04] MEDS: Levofloxacin 500 MG/100 ML 500 MG/100 ML BAG IVPB SCH (07:40)
[2017-05-04] MEDS: Nicotine 21 MG PATCH.TD24 TD SCH (07:40)
[2017-05-04] MEDS: Gabapentin 300 MG CAPSULE PO SCH (07:40)
[2017-05-04] MEDS: predniSONE 20 MG TABLET PO SCH (07:41)
[2017-05-04] MEDS: *HR* HYDROcodone/Acet 5/325 mg TABLET PO PRN (09:06)
[2017-05-04] MEDS ORDERED: Potassium Chloride Elixir 20 MEQ/15 ML UDC PO ONE (09:10)
[2017-05-04 10:49] VITALS: BP 125/86
--- NOTE | 2017-05-04 11:39 | Discharge Summary ---
Date of Encounter: 05/04/17 Time of Encounter: 10:00 - Discharge Diagnosis (1) Breast cancer Priority: Primary Status: Acute Comments: This is a new diagnosis for the patient. She is scheduled to followup with surgery Dr Davies later this week to discuss possible treatments. I have spoke to Oncology Dr Santos who is now onboard with her case. Plan is for multidisciplinary meeting . Scans of her diet, chest, abdomen did not reveal any acute or metastatic processes. Patient's headache has resolved Qualifiers: Breast location: unspecified site of breast Patient sex: female Laterality: left Qualified Code(s): C50.912 - Malignant neoplasm of unspecified site of left female breast (2) Pneumonia Priority: Primary Status: Acute Comments: No recent admissions, continue levofloxacin. She continues to tolerate room air. Qualifiers: Pneumonia type: due to unspecified organism Laterality: right Lung location: lower lobe of lung Qualified Code(s): J18.1 - Lobar pneumonia, unspecified organism (3) Headache Priority: Primary Status: Resolved (4) Renal cell carcinoma of right kidney Priority: Secondary Status: Resolved Comments: Patient had renal cell carcinoma in her right kidney status post right-sided partial nephrectomy in 2013. She stated that she followed up for repeat scans and was cleared shortly after the surgery. No further scans or follow-up. (5) History of prescription drug abuse Priority: Secondary Status: Chronic Comments: In review of her chart in [facility], patient has a very lengthy history of removal from primary care practices for controlled substance prescription issues. She was removed from Dr Juan Estrada's practice in 2011 after an incident from an allegedly stolen prescription of Percocet. She was also removed from Dr. Lan Miranda in 2012 regarding activities about controlled substances. She is also earlier this year and November 2016 by Keny Stanley of [facility] and he left a message for her to no longer receive Percocet or Vicodin prescriptions. Given that she states her left breast is hurting, I will write for enough to get her to appointment. OARRS report reviewed. (6) Anxiety Priority: Secondary Status: Chronic Comments: recently started on Xanax per Dr Davies- followup outpatient. (7) Transaminitis Priority: Primary Status: Acute Comments: This appears new for this patient. Abdominal CT unremarkable. (8) Smoker Priority: Secondary Status: Chronic Comments: Declined counseling (9) DVT prophylaxis Priority: Primary Status: Acute Comments: Subcutaneous heparin while admitted - Discharge Medications Prescriptions: Albuterol Sulfate [Albuterol Inhaler] 2 puff IH Q4HR PRN #1 [id number] PRN Reason: Shortness Of Breath Ipratropium/Albuterol Neb [Duoneb] 3 ml IH [id number] PRN #100 inhsol PRN Reason: Shortness Of Breath Escitalopram [Lexapro] 20 mg PO BID #60 tablet HYDROcodone/Acet 5/325 mg [[place] 5-325 mg] 1 tab PO Q6H PRN #12 tablet PRN Reason: Pain levoFLOXacin [Levofloxacin] 750 mg PO DAILY #5 tablet predniSONE [PredniSONE] 40 mg PO DAILY #10 tablet Quetiapine Fumarate [Seroquel] 100 mg PO HS #30 tablet Home Medications: ALPRAZolam [Xanax 0.5 MG Tablet] 0.5 mg PO BID PRN 05/02/17 [History] Gabapentin [Neurontin] 300 mg PO BID 05/02/17 [History] Albuterol Sulfate [Albuterol Inhaler] 2 puff IH Q4HR PRN #1 [id number] 05/04/17 [Rx] Escitalopram [Lexapro] 20 mg PO BID #60 tablet 05/04/17 [Rx] HYDROcodone/Acet 5/325 mg [[place] 5-325 mg] 1 tab PO Q6H PRN #12 tablet 05/04/17 [Rx] Ipratropium/Albuterol Neb [Duoneb] 3 ml IH [id number] PRN #100 inhsol 05/04/17 [Rx] Quetiapine Fumarate [Seroquel] 100 mg PO HS #30 tablet 05/04/17 [Rx] levoFLOXacin [Levofloxacin] 750 mg PO DAILY #5 tablet 05/04/17 [Rx] predniSONE [PredniSONE] 40 mg PO DAILY #10 tablet 05/04/17 [Rx] Allergies/Adverse Reactions: Allergies prochlorperazine [From Compazine] Adverse Reaction (Verified 06/23/16 15:39) Vomiting tramadol Adverse Reaction (Verified 05/02/17 11:40) Anxiety Procedures/tests Complete & Pending: Procedures Performed prior 72 hours Category Date Time Status CT abd pelvis w iv no oral [CT] Routine Cat Scan 05/03/17 11:[address] chest w con [CT] Routine Cat Scan 05/03/17 11:[address] head/brain w con [CT] Routine Cat Scan 05/03/17 11:[address] head/brain wo con [CT] Routine Cat Scan 05/02/17 14:16 Completed Date of admission: 05/02/17 13:32 Primary care physician: PCP NO Consults: 05/03/17 10:42 Consult to Oncology [CONS] Routine Consulting Provider: On[facility] Reason for Consult: remote hx kidney CA s/p partial right nephrectomy 3 years ago. dx'd with breast cancer 2 weeks ago- due to have first onc appt this . here for F, sob, cough, severe OSEGUERA Time Notified: 10:44 Call Completed: Yes Discharging clinician: Eva Esquivel Anticipated date of discharge: 05/04/17 - Patient Status Disposition: Home, Self-Care Condition: Good Functional capacity at discharge: independent ambulation Overall status at discharge: patient is back to baseline - Discharge Instructions Follow Up With: Irlanda Davies MD [Partnered Physician] - Antelmo Santos MD [Partnered Physician] - Additional Instructions: Follow-up with your surgeon and oncologist on as scheduled - Diet and Activity Activity: increase activity as tolerated Diet: regular diet Hospital course: Ms. Sarkar is a 46 year old female with past medical history of renal cell carcinoma to her right kidney status post right-sided partial nephrectomy in 2013, recent diagnosis of breast cancer, chronic kidney disease, bipolar disorder, tobacco abuse. Patient presented to the emergency room for chief complaint of cough, fever, and body aches. Patient stating for the 2 days prior to presentation that she had a nonproductive cough, fever, chills, body aches, and lightheadedness. She also endorsed poor by mouth intake, a headache , and shortness of breath. She denied chest pain or palpitations. Patient was seen in the urgent care on the day prior to presentation and was diagnosed with a virus and sent home. The patient had a recent breast mass biopsy and was told 2 days prior to presentation she had rest cancer and will likely need chemotherapy. Workup in the emergency department consistent with right lower lobe pneumonia. Patient was admitted to the hospitalist service for further evaluation and management. She was initially hypotensive that improved with IV fluids. She was treated with levofloxacin while admitted. She tolerated room air while admitted. On the first day of her admission, she had a severe, refractory to heavy pain medications headache. With concern for possible metastasis given her history of kidney cancer and new diagnosis of breast cancer , oncology was brought on board. Scans of her head, chest, and abdomen showed no new abnormalities and again revealed her known breast mass. Her headache resolved before the second day of her admission. She was then able to tolerate a regular diet and stated that she felt much better. She also had transaminitis that appears new for this patient however no hepatic abnormalities were noted on imaging. She was recently started on Xanax outpatient per Dr. Davies of surgery. Patient continually asked for pain medication, regarding her pain medication, in review of her chart in [facility], patient has a very lengthy history of removal from primary care practices for controlled substance prescription issues. She was removed from Dr Juan Estrada's practice in 2011 after an incident from an allegedly stolen prescription of Percocet. She was also removed from Dr. Lan Miranda in 2012 regarding activities about controlled substances. She was also removed earlier this year in November 2016 by Keny Stanley of [facility] and he left a message for her to no longer receive Percocet or Vicodin prescriptions. On examination , patient is exquisitely tender and she complains of left breast pain where her mass is located. I have reviewed her OARRS report. I will write for enough medication to get her through till and then defer to her primary care team for further pain management. She also stated that because she does not have a primary care provider at this time that she does not have any of her regular home medications. She was given a month's supply for Lexapro, Seroquel. She is also not been formally diagnosed with COPD although she was treated for pneumonia and a COPD exacerbation during this admission. Likely undiagnosed COPD. She has a nebulizer machine at home she was given a prescription for DuoNeb's. She was also given albuterol. She declined smoking cessation counseling. Overall, patient's pain was controlled and she was able to tolerate a regular diet. She remained on room air. She is discharged home in stable condition with close outpatient follow-up on or sooner if indicated. ITS Impressions Chest X-Ray 05/02/17 12:09 IMPRESSION: 1. Right lower lobe airspace disease favoring pneumonia. Recommend chest radiograph in 8 weeks to confirm resolution. D/ / Duglas Sampson MD / Duglas Sampson MD Interpreting Provider: Duglas Sampson MD Head CT 05/02/17 14:16 IMPRESSION: No evidence of acute intracranial abnormality. If clinical symptomatology persists, follow-up MRI examination may be helpful for more complete evaluation. D/ / 05/02/2017 17:00:15 Mahamed Henderson MD / [facility] Interpreting Provider: Mahamed Henderson MD Abdomen/Pelvis CT 05/03/17 11:14 IMPRESSION: 1. New right lower lobe airspace consolidation with surrounding ground-glass densities consistent with pneumonia. Follow-up imaging recommended to ensure resolution. 2. Left lateral breast mass presumably corresponds to known breast carcinoma. Enlarged left axillary lymphadenopathy, as described above. 3. Healing subacute right lateral 6th rib fracture. 4. No evidence of metastatic disease in the abdomen or pelvis. Status post partial right nephrectomy without evidence of local recurrence. D/ / 05/03/2017 13:02:06 Benji Stokes MD [facility] Interpreting Provider: Benji Stokes MD Chest CT 05/03/17 11:14 IMPRESSION: 1. New right lower lobe airspace consolidation with surrounding ground-glass densities consistent with pneumonia. Follow-up imaging recommended to ensure resolution. 2. Left lateral breast mass presumably corresponds to known breast carcinoma. Enlarged left axillary lymphadenopathy, as described above. 3. Healing subacute right lateral 6th rib fracture. 4. No evidence of metastatic disease in the abdomen or pelvis. Status post partial right nephrectomy without evidence of local recurrence. D/ / 05/03/2017 13:02:06 Benji Stokes MD / [email or web address] Interpreting Provider: Benji Stokes MD Head CT 05/03/17 11:14 IMPRESSION: No acute intracranial abnormality. No evidence of intracranial metastatic disease. D/ / Benji Stokes MD / Benji Stokes MD Interpreting Provider: Benji Stokes MD - Time Spent with Patient Total time spent providing and/or coordinating discharge services: - Constitutional Vitals: Temp Pulse Resp BP Pulse Ox 98.8 F 91 17 125/86 94 05/04/17 10:48 05/04/17 10:48 05/04/17 10:48 05/04/17 10:48 05/04/17 10:48 General appearance: Present: A&O X 3, pleasant, no acute distress, answers questions appropriately - Head Head exam: Present: atraumatic, normocephalic - Eye Eye exam: Present: PERRL, conjuntiva pink, sclera anicteric Pupils: Present: PERRL - Neck Neck exam general surgery: Present: supple, trachea midline. Absent: lymphadenopathy - Respiratory Respiratory exam: Present: chest wall tenderness (breast), wheezes. Absent: accessory muscle use, rales, respiratory distress, rhonchi - Cardiovascular Cardiovascular exam: Present: RRR, +S1, +S2. Absent: diastolic murmur, gallop, rubs, systolic murmur - GI/Abdominal GI/Abdominal exam: Present: normal bowel sounds, soft, no peritoneal signs. Absent: distended, tenderness - Extremities Exam Extremities exam: Present: warm, radial pulses palpable and symetrical. Absent : calf tenderness, cyanotic, pedal edema - Neurological Exam Neurological exam: Present: alert, CN II-XII intact, oriented X3, no focal deficits, strengths equal and symetr throughout. Absent: pronater drift, facial droop, speech deficit - Skin Skin exam: Present: dry, intact, normal color, warm - Expanded Skin Exam Distribution of rash: Present: chest (mass to left breast)
== END 2017-05-04 12:48 | disposition home or self-care (01) ==
LOC: 3BNU 11:37 → EMEROO 11:37 → 3BNU 14:44
PROVIDERS: ADMIT Internal Medicine; ATTEND Nurse Practitioner Family

== ENCOUNTER 2017-07-21 12:04 | Inpatient (IN) ==
[~2017-07-21 12:04] MED LIST: Aminoglycoside Consult 1 EACH MC ONE
[2017-07-21 12:40] LABS: Hemoglobin 8.7 g/dL (11.5-15.4)
[2017-07-21 12:43] LABS: Hematocrit 24.9 % (35.3-44.9); INR 1.3; Mean Corpuscular HGB Conc 34.9 g/dL (31.6-35.5); Mean Corpuscular Hemoglobin 30.6 pg (28.0-33.3); Mean Corpuscular Volume 87.7 fL (83.0-100.0); Mean Platelet Volume 8.8 fL (9.4-12.4); Prothrombin Time 14.1 Seconds (9.4-12.1); Red Blood Count 2.84 M/mcL (3.82-4.97); Red Cell Distribution Width 14.8 % (11.5-14.5)
[2017-07-21 12:48] LABS: Platelet Count 58 K/mcL (140-400)
[2017-07-21] MEDS ORDERED: Levofloxacin 750 MG/150 ML 750 MG/150 ML BAG IVPB ONE (12:49)
[2017-07-21] MEDS ORDERED: *HR* HYDROmorphone (PF) 1 MG/ML SYRINGE IVP ONE (12:49)
[2017-07-21] MEDS ORDERED: Vancomycin 1,000 MG in D5% in Water 250 ML IVPB ONE (12:49)
[2017-07-21] MEDS ORDERED: Piperacillin/Tazobactam 3.375 GM in D5% in Water (Mini-Bag+) 100 ML IVPB ONE (12:49)
[2017-07-21 12:52] LABS: Alanine Aminotransferase 13 Units/L (0-55); Albumin 3.3 g/dL (3.5-5.0); Albumin/Globulin Ratio 0.9 (1.1-2.2); Alkaline Phosphatase 91 Units/L (38-126); Aspartate Amino Transferase 12 Units/L (5-34); BUN/Creatinine Ratio 14 (6-26); Bilirubin,Direct 0.4 mg/dL (0.0-0.5); Bilirubin,Indirect 0.4 mg/dL (0.0-1.2); Bilirubin,Total 0.8 mg/dL (0.2-1.2); Blood Urea Nitrogen 11 mg/dL (7-20); Calcium 9.3 mg/dL (8.6-10.8); Carbon Dioxide 24 mEq/L (19-29); Chloride 94 mEq/L (98-109); Globulin 3.8 g/dL (2.4-3.5); Glucose 139 mg/dL (70-99); Magnesium 1.6 mg/dL (1.6-2.6); Osmolality,Calculated 264 (280-300); Phosphorous 2.2 mg/dL (2.3-4.7); Potassium 3.4 mEq/L (3.5-4.5); Sodium 126 mEq/L (136-145); Total Protein 7.1 g/dL (6.0-8.3); eGFR For African Americans > 60 (> 60); eGFR For Non-African Americans > 60 (> 60)
[2017-07-21] MEDS ORDERED: methylPREDNISolone 125 MG/2 ML VIAL IVP ONE (12:55)
[2017-07-21] MEDS ORDERED: Ipratropium/Albuterol Neb 3 ML IH ONE (12:55)
--- NOTE | 2017-07-21 12:55 | Emergency Department Note ---
Disposition Clinical Impression: Pneumonia Qualifiers: Pneumonia type: due to unspecified organism Laterality: bilateral Lung location : unspecified part of lung Qualified Code(s): J18.9 - Pneumonia, unspecified organism Pulmonary embolism Qualifiers: Pulmonary embolism type: other Chronicity: acute Acute cor pulmonale presence: without acute cor pulmonale Qualified Code(s): I26.99 - Other pulmonary embolism without acute cor pulmonale Disposition: Admitted As Inpatient Condition: Good Referrals: NONE,PCP [Primary Care Provider] - Forms: ED Satisfaction Letter Time of Disposition: 15:47 General Adult HPI - General Chief complaint: ED Fever Stated complaint: Fever / Body Aches Time Seen by Provider: 07/21/17 12:11 Source: patient Limitations: no limitations Nursing Notes Reviewed: Yes Vital Signs Reviewed: Yes - History of Present Illness HPI Narrative: 47 year old female presnts to the ED with her with complaints of breakbone fevers and productive cough with brown sputum. She has a history for breast and kidney cancer and is currently under chemotherapy. Ignacia states that the cough has been there for about one week and that she meeks no tbeen around any other sick individuals. Ignacia states that she has had a fever at home of 104-103F since 1800 last night with labored breathing and a HR as fast s 148. She states her blood pressures have otehrwise been normal. Ignacia states that she also has been experiencing incrased midsternal chest pain with palpitations but denies any history of PEs/DVTs/MIs. She follows with [facility] and was most recently admitted to the hospital about 60 days ago for pneumonia then. Pain Scale: 10 - Related Data Home Medications Medication Instructions Recorded Confirmed Gabapentin [Neurontin] 300 mg PO BID 05/02/17 07/21/17 Ibuprofen [Ibuprofen] 800 mg PO Q8H PRN 07/21/17 07/21/17 Tizanidine HCl 4 mg PO BID 07/21/17 07/21/17 Previous Rx's Medication Instructions Recorded Albuterol Sulfate [Albuterol 2 puff IH Q4HR PRN #1 hfa.aer.ad 05/04/17 Inhaler] Escitalopram [Lexapro] 20 mg PO BID #60 tablet 05/04/17 Ipratropium/Albuterol Neb [Duoneb] 3 ml IH [id number] PRN #100 inhsol 05/04/17 Quetiapine Fumarate [Seroquel] 100 mg PO HS #30 tablet 05/04/17 Dexamethasone [Decadron] 4 mg PO DAILY #10 tab 05/18/17 Loratadine [Claritin] 10 mg PO DAILY #90 tablet 05/18/17 Magic Mouthwash [Magic Mouthwash 10 ml PO QID PRN #240 ml 05/18/17 BLM] Omeprazole [PriLOSEC] 20 mg PO DAILY #90 cap 05/18/17 Ondansetron [Zofran] 8 mg PO Q8H PRN #90 tablet 05/18/17 Docusate [Colace] 100 mg PO BID #30 capsule 05/19/17 ALPRAZolam [Xanax 0.5 MG Tablet] 1 mg PO Q6H PRN #90 tablet 06/08/17 Tapentadol HCl [Nucynta ER] 50 mg PO Q12H #60 tab.er.12h 06/08/17 FentaNYL PATCH [Duragesic] 12 mcg TD Q72H #10 patch.td72 07/13/17 Oxycodone HCl/Acetaminophen 1 each PO Q6HR PRN #60 tablet 07/13/17 [Percocet 5-325 mg Tablet] Promethazine [Phenergan] 25 mg PO Q6HR #40 tablet 07/13/17 Allergies Allergy/AdvReac Type Severity Reaction Status Date / Time prochlorperazine AdvReac Intermediate Vomiting Verified 07/21/17 12:09 [From Compazine] tramadol AdvReac Intermediate Anxiety Verified 07/21/17 12:09 Constitutional: Reports: fever, chills, weakness. Denies: weight change Eyes: Denies: eye pain, eye discharge, vision change ENT ED: Denies: ear pain, throat pain, dental pain, hearing loss, epistaxis, congestion, dysphagia Cardiovascular: Reports: chest pain, palpitations, dyspnea on exertion. Denies : edema, syncope Respiratory: Reports: cough, dyspnea, wheezes. Denies: hemoptysis, stridor Gastrointestinal: Denies: abdominal pain, nausea, vomiting, diarrhea, constipation, hematemesis, melena, hematochezia Genitourinary: Denies: dysuria, frequency, hematuria, discharge Musculoskeletal: Denies: back pain, neck pain, arthralgia, myalgia Integumentary: Denies: rash, abrasion, lesions Neurological: Denies: headache, weakness, numbness, paresthesias, confusion, abnormal gait, vertigo Psychiatric: Denies: anxiety, depression, suicidal thoughts, homicidal thoughts , auditory hallucinations, visual hallucinations Endocrine: Denies: fatigue Hematological/Lymphatic: Denies: easy bleeding, easy bruising Allergic/Immunologic: Denies: facial swelling, urticaria Past Medical History - Past Medical History Medical history: Reports: cancer, renal disease, other Surgical history: Reports: appendectomy, breast surgery, cancer surgery 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: bipolar, depression MANAGER CASE history: Reports: bilateral tubal ligation - Social History Smoking Status: Current every day smoker Smokeless Tobacco Status: No Alcohol use: Reports: none Drug use: Reports: none, marijuana, prescription drug abuse Physical Exam - General Limitations: no limitations General appearance: alert, in no apparent distress - Head Head exam: atraumatic, normocephalic, normal inspection - Eye Eye exam: Present: normal appearance, PERRL, EOMI - Expanded Eye Exam Pupils: Left: reactive - ENT ENT exam: normal exam, normal oropharynx, mucous membranes moist - Expanded ENT Exam External ear exam: Present: normal external inspection Mouth exam: Present: normal external inspection Teeth exam: Present: normal inspection Throat exam: Present: normal inspection - Neck Neck exam: Present: normal inspection, full ROM, trachea midline - Chest Chest inspection: Present: normal inspection, symmetric chest wall rise - Respiratory Respiratory exam: Present: wheezes - Cardiovascular Cardiovascular exam: Present: normal rhythm, tachycardia, normal heart sounds - Abdominal Exam Abdominal exam: Present: soft, Non-Tender. Absent: tenderness, distention, guarding, rebound, rigidity - Extremities Exam Extremities exam: Present: normal inspection, full ROM. Absent: tenderness, pedal edema - Expanded Upper Extremity Exam Shoulder exam: Present: normal inspection, full ROM Arm exam: Present: normal inspection, full ROM Elbow exam: Present: normal inspection, full ROM Forearm/Wrist exam: Present: normal inspection, full ROM Hand exam: Present: normal inspection, full ROM Vascular exam: Normal: capillary refill, radial pulse - Expanded Lower Extremity Exam Hip/Pelvis exam: Present: normal inspection, full ROM Upper leg exam: Present: normal inspection, full ROM Knee exam: Present: normal inspection, full ROM Lower leg exam: Present: normal inspection, full ROM Ankle exam: Present: normal inspection, full ROM Foot/toe exam: Present: normal inspection, full ROM Neurovascular/Tendon exam: Absent: motor deficit, sensory deficit, tendon deficit - Back Exam Back exam: Present: normal inspection, full ROM. Absent: tenderness - Neurological Exam Neurological exam: Present: alert, oriented X3 - Expanded Neurological Exam Patient oriented to: Present: person, place, time Coma Scale Eye Opening: Spontaneous Coma Scale Motor Response: Obeys Commands Coma Scale Verbal Response: Oriented Coma Scale Total: 15 - Psychiatric Psychiatric exam: Present: normal affect, normal mood - Skin Skin exam: Present: warm, dry, intact, normal color Course Course Narrative: we will do sepsis workup on patinet seondary to neutropenic fever and likely source is pulmonary. We janae start IVF and HCAP antibiotics. CTA Chest to rule out PE. - Reevaluation(s) Reevaluation #1: updated patinet and family on results. WE will admit to medicine . started on heparin. Time: 15:46 - Consultations Consultation #1: discussed case with Dr. Forrester and she accepts patient on medicine service. Time: 15:46 Vital Signs Temperature 99.9 F H 07/21/17 12:06 Pulse Rate 149 07/21/17 12:06 Respiratory Rate 18 07/21/17 12:06 Blood Pressure 98/70 07/21/17 12:06 O2 Sat by Pulse Oximetry 95 07/21/17 12:06 Temperature 99.9 F H 07/21/17 12:06 Pulse Rate 122 07/21/17 13:57 Respiratory Rate 20 07/21/17 14:33 Blood Pressure 108/70 07/21/17 13:57 O2 Sat by Pulse Oximetry 92 07/21/17 14:33 Oxygen Delivery Oxygen Delivery Nasal Cannula Medical Decision Making - Lab Data Result diagrams: 07/21/17 12:31 07/21/17 12:31 Lab Results 07/21/17 07/21/17 07/21/17 Range/Units 12:31 12:31 12:31 WBC 0.2 L* (4.3-11.1) K/mcL RBC 2.84 L (3.82-4.97) M/mcL Hgb 8.7 L (11.5-15.4) g/dL Hct 24.9 L (35.3-44.9) % MCV 87.7 (83.0-100.0) fL MCH 30.6 (28.0-33.3) pg MCHC 34.9 (31.6-35.5) g/dL RDW 14.8 H (11.5-14.5) % Plt Count 58 L (140-400) K/mcL MPV 8.8 L (9.4-12.4) fL Seg Neutrophils % 14.0 % Lymphocytes % 76.0 % Neutrophils # 0.0 L (1.6-8.9) K/mcL Lymphocytes # 0.2 L (0.6-4.6) K/mcL Platelet Estimate Decreased L (Normal) Anisocytosis 1+ A (Not Present) PT 14.1 H (9.4-12.1) Seconds INR 1.3 APTT 29.0 (26.0-36.0) Seconds Sodium 126 L (136-145) mEq/L Potassium 3.4 L (3.5-4.5) mEq/L Chloride 94 L (98-109) mEq/L Carbon Dioxide 24 (19-29) mEq/L BUN 11 (7-20) mg/dL Creatinine 0.79 (0.57-1.11) mg/dL Est GFR ( Amer) > 60 (> 60) Est GFR (Non-Af Amer) > 60 (> 60) BUN/Creatinine Ratio 14 (6-26) Glucose 139 H (70-99) mg/dL Calculated Osmolality 264 L (280-300) Lactic Acid (0.5-2.2) mmol/L Calcium 9.3 (8.6-10.8) mg/dL Phosphorus 2.2 L (2.3-4.7) mg/dL Magnesium 1.6 (1.6-2.6) mg/dL Total Bilirubin 0.8 (0.2-1.2) mg/dL Direct Bilirubin 0.4 (0.0-0.5) mg/dL Indirect Bilirubin 0.4 (0.0-1.2) mg/dL AST 12 (5-34) Units/L ALT 13 (0-55) Units/L Alkaline Phosphatase 91 (38-126) Units/L Troponin I (0-0.03) ng/mL Serum Total Protein 7.1 (6.0-8.3) g/dL Albumin 3.3 L (3.5-5.0) g/dL Globulin 3.8 H (2.4-3.5) g/dL Albumin/Globulin Ratio 0.9 L (1.1-2.2) 07/21/17 07/21/17 07/21/17 Range/Units 12:31 12:31 15:10 WBC (4.3-11.1) K/mcL RBC (3.82-4.97) M/mcL Hgb (11.5-15.4) g/dL Hct (35.3-44.9) % MCV (83.0-100.0) fL MCH (28.0-33.3) pg MCHC (31.6-35.5) g/dL RDW (11.5-14.5) % Plt Count (140-400) K/mcL MPV (9.4-12.4) fL Seg Neutrophils % % Lymphocytes % % Neutrophils # (1.6-8.9) K/mcL Lymphocytes # (0.6-4.6) K/mcL Platelet Estimate (Normal) Anisocytosis (Not Present) PT (9.4-12.1) Seconds INR APTT (26.0-36.0) Seconds Sodium (136-145) mEq/L Potassium (3.5-4.5) mEq/L Chloride (98-109) mEq/L Carbon Dioxide (19-29) mEq/L BUN (7-20) mg/dL Creatinine (0.57-1.11) mg/dL Est GFR ( Amer) (> 60) Est GFR (Non-Af Amer) (> 60) BUN/Creatinine Ratio (6-26) Glucose (70-99) mg/dL Calculated Osmolality (280-300) Lactic Acid 2.3 H 1.0 (0.5-2.2) mmol/L Calcium (8.6-10.8) mg/dL Phosphorus (2.3-4.7) mg/dL Magnesium (1.6-2.6) mg/dL Total Bilirubin (0.2-1.2) mg/dL Direct Bilirubin (0.0-0.5) mg/dL Indirect Bilirubin (0.0-1.2) mg/dL AST (5-34) Units/L ALT (0-55) Units/L Alkaline Phosphatase (38-126) Units/L Troponin I 0.01 (0-0.03) ng/mL Serum Total Protein (6.0-8.3) g/dL Albumin (3.5-5.0) g/dL Globulin (2.4-3.5) g/dL Albumin/Globulin Ratio (1.1-2.2) - EKG Data EKG #1 EKG attestation: Yes I reviewed and interpreted this EKG. EKG results narrative: sinus tachycardia with rate of 128. NO STEMI. normla intervals. no old ekg. 1236
[2017-07-21 13:25] LABS: Lymphocytes # 0.2 K/mcL (0.6-4.6); Platelet Estimate Decreased (Normal)
[2017-07-21 13:26] LABS: Anisocytosis 1+ (Not Present)
[2017-07-21] MEDS: 0.9 % Sodium Chloride 1,000 ML IVC SCH ×2 (13:49→16:00)
[2017-07-21] MEDS ORDERED: *HR* Heparin 5,000 UNIT/ML VIAL IVP PRN ×6 (15:26→23:57)
[2017-07-21] MEDS ORDERED: *HR* Heparin 5,000 UNIT/ML VIAL IVP ONE (15:26)
[2017-07-21] MEDS ORDERED: Heparin 25,000 UNIT/500 ML D5W 25,000 UNIT/500 ML MLS IVC SCH ×3 (15:30→23:57)
[2017-07-21] MEDS ORDERED: *HR* FentaNYL (PF) 100 MCG/2 ML VIAL IVP ONE (15:44)
[2017-07-21] MEDS ORDERED: 0.9 % Sodium Chloride 1,000 ML ONE (15:56)
[2017-07-21 16:19] LABS: Bilirubin,Urine Negative (Negative); Blood,Urine Small (Negative); Clarity,Urine Clear (Clear); Color,Urine Yellow (Yellow); Glucose,Urine (UA) Normal (Normal); Ketones,Urine Negative (Negative); Leukocyte Esterase,Urine Negative (Negative); Nitrite,Urine Negative (Negative); PH,Urine 6.5 pH Units (5.0-8.0); Protein,Urine 30 mg/dL (Neg-Trace); Specific Gravity,Urine 1.029 (1.010-1.025); Urobilinogen,Urine Normal (Normal)
[2017-07-21 16:23] LABS: Bacteria,Urine Few per hpf (None-Few); Hyaline Casts,Urine None Seen per lpf (None-Few); RBC,Urine 0-3 per hpf (0-3); Squamous Epithelial Cell,Urine Many per lpf (None-Few); WBC,Urine 0-3 per hpf (0-3)
[2017-07-21] MEDS ORDERED: Acetaminophen 325 MG TABLET PO PRN ×2 (16:42→23:57)
[2017-07-21] MEDS ORDERED: Naloxone 0.4 MG/ML INJ IVP PRN ×2 (16:42→23:57)
[2017-07-21] MEDS ORDERED: Ondansetron 4 MG/2 ML VIAL IVP PRN (16:42)
[2017-07-21] MEDS ORDERED: 0.9 % Sodium Chloride 1,000 ML IVC SCH ×3 (16:45→23:57)
[2017-07-21] MEDS ORDERED: ALPRAZolam 0.5 MG TABLET PO PRN ×2 (16:49→23:57)
[2017-07-21] MEDS ORDERED: Ondansetron ODT 4 MG TAB.RAPDIS PO PRN ×2 (16:49→23:57)
[2017-07-21] MEDS ORDERED: Magic Mouthwash 10 ML UD Cup PO PRN ×2 (16:49→23:57)
[2017-07-21] MEDS ORDERED: Albuterol 2.5 MG/3 ML NEBULIZER IH PRN ×2 (16:52→23:57)
[2017-07-21] MEDS ORDERED: Levofloxacin 750 MG/150 ML 750 MG/150 ML BAG IVPB SCH (17:00)
[2017-07-21] MEDS ORDERED: *HR* FentaNYL PATCH 12 MCG PATCH TD SCH (17:00)
[2017-07-21] MEDS ORDERED: Vancomycin 1,000 MG in D5% in Water 250 ML IVPB SCH ×2 (17:00→18:00)
[2017-07-21] MEDS ORDERED: TAPENTADOL HCL 50 MG PO SCH (17:00)
--- NOTE | 2017-07-21 17:04 | Internal Med History&Physical ---
<Daisy Carias - Last Filed: 07/21/17 17:00> Date of Encounter: 07/21/17 Time of Encounter: 17:00 Assessment and Plan (1) Sepsis Current visit: Yes Status: Acute Patient with fever reported at home at 102, fever on presentation to any 99.9, heart rate 120s to 140s, multifocal pneumonia, neutropenia due to chemotherapy with white blood cell count of 0.2. Blood cultures were drawn and sent. Sputum cultures ordered. Initial lactate was elevated at 2.3, recheck after fluids was normal at 1.0. Broad-spectrum antibiotics initiated with Zosyn, vancomycin, and Levaquin. Patient given a 1 L fluid bolus in the ER, will continue fluids with 29 at 120. Qualifiers: Sepsis type: sepsis due to unspecified organism Qualified Code(s): A41.9 - Sepsis, unspecified organism (2) HCAP (healthcare-associated pneumonia) Current visit: Yes Status: Acute Patient has breast cancer and is undergoing chemotherapy, she presents with productive cough and fever, chest x-ray and CT a consistent with multifocal pneumonia. As she is undergoing chemotherapy she is considered healthcare acquired pneumonia. Broad-spectrum antibiotics initiated with Zosyn, vancomycin and Levaquin. DuoNeb nebulizer treatments 4 times a day Albuterol nebulizer every 2 when necessary Budesonide formoterol twice a day Sputum culture ordered. (3) Hyponatremia Current visit: Yes Status: Acute Sodium of 126. Will give 0.9 normal saline, and check sodium every 8 hours, avoid overcorrection with plan to increase sodium no more than 6 in a 24-hour period. (4) Neutropenia Current visit: Yes Status: Acute White blood cell count of 0.2, secondary to chemotherapy for breast cancer Neutropenic precautions. Oncology consult. Qualifiers: Neutropenia type: secondary to cancer chemotherapy Qualified Code(s): D70.1 - Agranulocytosis secondary to cancer chemotherapy; T45.1X5A - Adverse effect of antineoplastic and immunosuppressive drugs, initial encounter (5) Pulmonary embolism Current visit: Yes Status: Acute CTA of the chest revealed small left upper lobe pulmonary embolus. Patient at risk for pulmonary embolus due to active malignancy. Heparin drip was initiated, check PT/INR and PTT according to protocol. Bilateral lower extremity Dopplers, and echocardiogram to evaluate for source of thrombus. Qualifiers: Pulmonary embolism type: other Chronicity: acute Acute cor pulmonale presence: without acute cor pulmonale Qualified Code(s): I26.99 - Other pulmonary embolism without acute cor pulmonale (6) Breast cancer Current visit: Yes Status: Chronic Patient has breast cancer and is undergoing chemotherapy. She presents with neutropenia today, as well as H And sepsis. We will consult oncology for recommendations. Qualifiers: Breast location: unspecified site of breast Estrogen receptor status: unspecified Patient sex: female Laterality: left Qualified Code(s): C50.912 - Malignant neoplasm of unspecified site of left female breast (7) DVT prophylaxis Current visit: Yes Status: Acute Patient on heparin drip for acute PE. Additional pharmacologic prophylaxis is not warranted. Internal Medicine - H&P: HPI Chief complaint: cough, fever Admitted From: Emergency Dept Plans for Post Hospital Care: Home History of present illness: Ms. Sarkar is a 47 year old female with breast cancer on chemotherapy, COPD, history of kidney cancer, bipolar disorder, presented to the emergency department today with complaints of productive cough, fever, and body aches. Patient reports that she has had a cough for about a week, productive of brown sputum. She reports generalized body aches, worsening over the last week. She also reports chills, and sweats, her reports that he took her temperature last evening and it was 102. She also reports some palpitations. Patient denies any lightheadedness, dizziness, chest pain, shortness of breath, nausea, vomiting, abdominal pain, diarrhea. Evaluation emergency department revealed patient was neutropenic with white blood cell count of 0.2, she had a fever of 99.9, as well as tachycardia with heart rate 120s to 140s. She was hyponatremic with sodium of 126. Lactate was elevated at 2.3 recheck after fluids was 1.0. Troponin was normal at 0.01. Chest x-ray revealed right middle lobe airspace opacity suspicious for pneumonia and linear opacities in the mid to lower left lung as well. CTA showed small left upper lobe pulmonary embolus, as well as left greater than right bilateral infrahilar consolidations as well as disease in the middle lobe and lingula consistent with multifocal pneumonia. Patient met sepsis criteria, blood cultures were drawn and sent, patient was given fluid bolus and started on broad-spectrum antibiotics for HCAP. On exam, patient alert and oriented, in no acute distress. Heart had regular rate and rhythm, heart rate in the 80s on my exam. Lungs had diffuse wheezes, rhonchi. Abdomen was soft and nontender positive bowel sounds. Bilateral lower extremities with no peripheral edema, peripheral pulses were intact. Past Med Surg Social Fam HX - Past Medical History Medical history: cancer (breast cancer on chemo, history of renal cancer s/p right partial nephrectomy), COPD, renal disease, other Psychiatric history: bipolar, depression - Past Surgical History Surgical History: appendectomy, breast surgery, cancer surgery (right partial nephrectomy) - Social History Smoking Status: Current every day smoker Smokeless Tobacco Status: No Alcohol use: none Drug use: none, marijuana, prescription drug abuse - Family History Mother Living Status: Still Living Hx Family Cardiac Disorders: Yes (CVA) Father Living Status: Still Living Hx Family Cancer: Yes Internal Medicine - H&P: Meds Gabapentin [Neurontin] 300 mg PO BID 05/02/17 [History] Albuterol Sulfate [Albuterol Inhaler] 2 puff IH Q4HR PRN #1 hfa.aer.ad 05/04/17 [Rx] Escitalopram [Lexapro] 20 mg PO BID #60 tablet 05/04/17 [Rx] Ipratropium/Albuterol Neb [Duoneb] 3 ml IH [id number] PRN #100 inhsol 05/04/17 [Rx] Quetiapine Fumarate [Seroquel] 100 mg PO HS #30 tablet 05/04/17 [Rx] Dexamethasone [Decadron] 4 mg PO DAILY #10 tab 05/18/17 [Rx] Loratadine [Claritin] 10 mg PO DAILY #90 tablet 05/18/17 [Rx] Magic Mouthwash [Magic Mouthwash BLM] 10 ml PO QID PRN #240 ml 05/18/17 [Rx] Omeprazole [PriLOSEC] 20 mg PO DAILY #90 cap 05/18/17 [Rx] Ondansetron [Zofran] 8 mg PO Q8H PRN #90 tablet 05/18/17 [Rx] Docusate [Colace] 100 mg PO BID #30 capsule 05/19/17 [Rx] ALPRAZolam [Xanax 0.5 MG Tablet] 1 mg PO Q6H PRN #90 tablet 06/08/17 [Rx] Tapentadol HCl [Nucynta ER] 50 mg PO Q12H #60 tab.er.12h 06/08/17 [Rx] FentaNYL PATCH [Duragesic] 12 mcg TD Q72H #10 patch.td72 07/13/17 [Rx] Oxycodone HCl/Acetaminophen [Percocet 5-325 mg Tablet] 1 each PO Q6HR PRN #60 tablet 07/13/17 [Rx] Promethazine [Phenergan] 25 mg PO Q6HR #40 tablet 07/13/17 [Rx] Ibuprofen [Ibuprofen] 800 mg PO Q8H PRN 07/21/17 [History] Tizanidine HCl 4 mg PO BID 07/21/17 [History] 3 Allergy/AdvReac Type Severity Reaction Status Date / Time prochlorperazine AdvReac Intermediate Vomiting Verified 07/21/17 12:09 [From Compazine] tramadol AdvReac Intermediate Anxiety Verified 07/21/17 12:09 All Systems PM: A 10-system review of systems was performed and is negative for pertinent findings except as documented above in the HPI. - Constitutional Constitutional: chills, fever(s), malaise, night sweats - EENT Eyes: no change in vision, no discharge, no pain, no photophobia Ears: no ear discharge, no ear pain, no tinnitus Nose, mouth and throat: no dysphagia, no nasal discharge, no neck pain, no sore throat - Cardiovascular Cardiovascular ROS IM: diaphoresis, no chest pain, no dyspnea, no lightheadedness, no palpitations, no syncope - Respiratory Respiratory: cough, wheezing, excessive phlegm production, no dyspnea - Gastrointestinal Gastrointestinal: no abdominal pain, no diarrhea, no hematemesis, no hematochezia, no melena, no nausea, no vomiting - Genitourinary Genitourinary: no change in urinary stream, no dysuria, no flank pain, no hematuria - Musculoskeletal Musculoskeletal ROS IM: no numbness, no tingling - Integumentary Integumentary IM: no rash, no unusual bruising - Neurological Neurological ROS: no confusion, no convulsions, no focal weakness, no numbness, no tingling, no tremor(s) - Hematologic/Lymphatic Hematologic/Lymphatic: no easy bruising - Constitutional Vitals: Temp Pulse Resp BP Pulse Ox 99.9 F H 99 18 108/63 92 07/21/17 12:06 07/21/17 16:45 07/21/17 16:45 07/21/17 16:45 07/21/17 16:45 General appearance: Present: A&O X 3, pleasant, no acute distress - Head Head exam: Present: atraumatic, normocephalic - Eye Eye exam: Present: PERRL, conjuntiva pink, sclera anicteric Pupils: Present: PERRL - Neck Neck exam general surgery: Present: supple, trachea midline. Absent: lymphadenopathy - Respiratory Respiratory exam: Present: rhonchi, wheezes. Absent: accessory muscle use, rales - Cardiovascular Cardiovascular exam: Present: RRR, +S1, +S2. Absent: diastolic murmur, gallop, rubs, systolic murmur - GI/Abdominal GI/Abdominal exam: Present: normal bowel sounds, soft, no peritoneal signs. Absent: distended, tenderness - Extremities Exam Extremities exam: Present: warm, radial pulses palpable and symmetrical. Absent : calf tenderness, cyanotic, pedal edema - Neurological Exam Neurological exam: Present: CN II-XII intact, oriented X3, no focal deficits. Absent: facial droop, speech deficit - Skin Skin exam: Present: diaphoretic, intact Internal Med - H&P Results - Labs CBC & Chem 7: 07/21/17 12:31 07/21/17 12:31 Labs: All Lab Results (24 Hours) 07/21/17 07/21/17 07/21/17 Range/Units 12:31 12:31 12:31 WBC 0.2 L* (4.3-11.1) K/mcL RBC 2.84 L (3.82-4.97) M/mcL Hgb 8.7 L (11.5-15.4) g/dL Hct 24.9 L (35.3-44.9) % MCV 87.7 (83.0-100.0) fL MCH 30.6 (28.0-33.3) pg MCHC 34.9 (31.6-35.5) g/dL RDW 14.8 H (11.5-14.5) % Plt Count 58 L (140-400) K/mcL MPV 8.8 L (9.4-12.4) fL Seg Neutrophils % 14.0 % Lymphocytes % 76.0 % Neutrophils # 0.0 L (1.6-8.9) K/mcL Lymphocytes # 0.2 L (0.6-4.6) K/mcL Platelet Estimate Decreased L (Normal) Anisocytosis 1+ A (Not Present) PT 14.1 H (9.4-12.1) Seconds INR 1.3 APTT 29.0 (26.0-36.0) Seconds Sodium 126 L (136-145) mEq/L Potassium 3.4 L (3.5-4.5) mEq/L Chloride 94 L (98-109) mEq/L Carbon Dioxide 24 (19-29) mEq/L BUN 11 (7-20) mg/dL Creatinine 0.79 (0.57-1.11) mg/dL Est GFR ( Amer) > 60 (> 60) Est GFR (Non-Af Amer) > 60 (> 60) BUN/Creatinine Ratio 14 (6-26) Glucose 139 H (70-99) mg/dL Calculated Osmolality 264 L (280-300) Lactic Acid (0.5-2.2) mmol/L Calcium 9.3 (8.6-10.8) mg/dL Phosphorus 2.2 L (2.3-4.7) mg/dL Magnesium 1.6 (1.6-2.6) mg/dL Total Bilirubin 0.8 (0.2-1.2) mg/dL Direct Bilirubin 0.4 (0.0-0.5) mg/dL Indirect Bilirubin 0.4 (0.0-1.2) mg/dL AST 12 (5-34) Units/L ALT 13 (0-55) Units/L Alkaline Phosphatase 91 (38-126) Units/L Troponin I (0-0.03) ng/mL Serum Total Protein 7.1 (6.0-8.3) g/dL Albumin 3.3 L (3.5-5.0) g/dL Globulin 3.8 H (2.4-3.5) g/dL Albumin/Globulin Ratio 0.9 L (1.1-2.2) Urine Color (Yellow) Urine Clarity (Clear) Urine pH (5.0-8.0) pH Units Ur Specific [place] (1.010-1.025) Urine Protein (Neg-Trace) mg/dL Urine Glucose (UA) (Normal) mg/dL Urine Ketones (Negative) mg/dL Urine Blood (Negative) Urine Nitrite (Negative) Urine Bilirubin (Negative) Urine Urobilinogen (Normal) mg/dL Ur Leukocyte Esterase (Negative) Urine Microscopic RBC (0-3) per hpf Urine Microscopic WBC (0-3) per hpf Ur Squamous Epith Cells (None-Few) per lpf Urine Bacteria (None-Few) per hpf Hyaline Casts (None-Few) per lpf Ur Culture Indicated? (NO) 07/21/17 07/21/17 07/21/17 Range/Units 12:31 12:31 15:10 WBC (4.3-11.1) K/mcL RBC (3.82-4.97) M/mcL Hgb (11.5-15.4) g/dL Hct (35.3-44.9) % MCV (83.0-100.0) fL MCH (28.0-33.3) pg MCHC (31.6-35.5) g/dL RDW (11.5-14.5) % Plt Count (140-400) K/mcL MPV (9.4-12.4) fL Seg Neutrophils % % Lymphocytes % % Neutrophils # (1.6-8.9) K/mcL Lymphocytes # (0.6-4.6) K/mcL Platelet Estimate (Normal) Anisocytosis (Not Present) PT (9.4-12.1) Seconds INR APTT (26.0-36.0) Seconds Sodium (136-145) mEq/L Potassium (3.5-4.5) mEq/L Chloride (98-109) mEq/L Carbon Dioxide (19-29) mEq/L BUN (7-20) mg/dL Creatinine (0.57-1.11) mg/dL Est GFR ( Amer) (> 60) Est GFR (Non-Af Amer) (> 60) BUN/Creatinine Ratio (6-26) Glucose (70-99) mg/dL Calculated Osmolality (280-300) Lactic Acid 2.3 H 1.0 (0.5-2.2) mmol/L Calcium (8.6-10.8) mg/dL Phosphorus (2.3-4.7) mg/dL Magnesium (1.6-2.6) mg/dL Total Bilirubin (0.2-1.2) mg/dL Direct Bilirubin (0.0-0.5) mg/dL Indirect Bilirubin (0.0-1.2) mg/dL AST (5-34) Units/L ALT (0-55) Units/L Alkaline Phosphatase (38-126) Units/L Troponin I 0.01 (0-0.03) ng/mL Serum Total Protein (6.0-8.3) g/dL Albumin (3.5-5.0) g/dL Globulin (2.4-3.5) g/dL Albumin/Globulin Ratio (1.1-2.2) Urine Color (Yellow) Urine Clarity (Clear) Urine pH (5.0-8.0) pH Units Ur Specific [place] (1.010-1.025) Urine Protein (Neg-Trace) mg/dL Urine Glucose (UA) (Normal) mg/dL Urine Ketones (Negative) mg/dL Urine Blood (Negative) Urine Nitrite (Negative) Urine Bilirubin (Negative) Urine Urobilinogen (Normal) mg/dL Ur Leukocyte Esterase (Negative) Urine Microscopic RBC (0-3) per hpf Urine Microscopic WBC (0-3) per hpf Ur Squamous Epith Cells (None-Few) per lpf Urine Bacteria (None-Few) per hpf Hyaline Casts (None-Few) per lpf Ur Culture Indicated? (NO) 07/21/17 Range/Units 15:51 WBC (4.3-11.1) K/mcL RBC (3.82-4.97) M/mcL Hgb (11.5-15.4) g/dL Hct (35.3-44.9) % MCV (83.0-100.0) fL MCH (28.0-33.3) pg MCHC (31.6-35.5) g/dL RDW (11.5-14.5) % Plt Count (140-400) K/mcL MPV (9.4-12.4) fL Seg Neutrophils % % Lymphocytes % % Neutrophils # (1.6-8.9) K/mcL Lymphocytes # (0.6-4.6) K/mcL Platelet Estimate (Normal) Anisocytosis (Not Present) PT (9.4-12.1) Seconds INR APTT (26.0-36.0) Seconds Sodium (136-145) mEq/L Potassium (3.5-4.5) mEq/L Chloride (98-109) mEq/L Carbon Dioxide (19-29) mEq/L BUN (7-20) mg/dL Creatinine (0.57-1.11) mg/dL Est GFR ( Amer) (> 60) Est GFR (Non-Af Amer) (> 60) BUN/Creatinine Ratio (6-26) Glucose (70-99) mg/dL Calculated Osmolality (280-300) Lactic Acid (0.5-2.2) mmol/L Calcium (8.6-10.8) mg/dL Phosphorus (2.3-4.7) mg/dL Magnesium (1.6-2.6) mg/dL Total Bilirubin (0.2-1.2) mg/dL Direct Bilirubin (0.0-0.5) mg/dL Indirect Bilirubin (0.0-1.2) mg/dL AST (5-34) Units/L ALT (0-55) Units/L Alkaline Phosphatase (38-126) Units/L Troponin I (0-0.03) ng/mL Serum Total Protein (6.0-8.3) g/dL Albumin (3.5-5.0) g/dL Globulin (2.4-3.5) g/dL Albumin/Globulin Ratio (1.1-2.2) Urine Color Yellow (Yellow) Urine Clarity Clear (Clear) Urine pH 6.5 (5.0-8.0) pH Units Ur Specific [place] 1.029 H (1.010-1.025) Urine Protein 30 H (Neg-Trace) mg/dL Urine Glucose (UA) Normal (Normal) mg/dL Urine Ketones Negative (Negative) mg/dL Urine Blood Small H (Negative) Urine Nitrite Negative (Negative) Urine Bilirubin Negative (Negative) Urine Urobilinogen Normal (Normal) mg/dL Ur Leukocyte Esterase Negative (Negative) Urine Microscopic RBC 0-3 (0-3) per hpf Urine Microscopic WBC 0-3 (0-3) per hpf Ur Squamous Epith Cells Many H (None-Few) per lpf Urine Bacteria Few (None-Few) per hpf Hyaline Casts None Seen (None-Few) per lpf Ur Culture Indicated? NO (NO) - Diagnostic Studies Chest x-ray Additional comments: Chest X-Ray 07/21/17 12:12 IMPRESSION: 1. Right middle lobe airspace opacity suspicious for pneumonia or aspiration. 2. New linear opacities in the mid to lower left lung most likely representing atelectasis. D/ / Blane Ferreira MD / Blane Ferreira MD Interpreting Provider: Blane Ferreira MD CT scan - chest Additional comments: Chest CTA 07/21/17 12:49 IMPRESSION: Small left upper lobe pulmonary embolus. No other definite emboli. Clot burden is low. No evidence of right ventricular strain. There is [id number] bilateral infrahilar consolidation as well as disease in the middle lobe and lingula. Multifocal pneumonia is suspected. Atelectasis may be contributory. Left axillary adenopathy and the left breast mass have improved consistent with a good response to therapy. D/ / Nate Branch MD / Nate Branch MD Interpreting Provider: Nate Branch MD <Lakisha Forrester - Last Filed: 07/21/17 18:50> Date of Encounter: 07/21/17 Internal Medicine - H&P: HPI History of present illness: Ms. Sarkar is a 47 year old female All Systems PM: A 10-system review of systems was performed and is negative for pertinent findings except as documented above in the HPI. - Constitutional Vitals: Temp Pulse Resp BP Pulse Ox 97 F L 97 16 106/68 96 07/21/17 17:51 07/21/17 17:51 07/21/17 17:51 07/21/17 17:51 07/21/17 18:18 Internal Med - H&P Results - Labs CBC & Chem 7: 07/21/17 12:31 07/21/17 18:00 Labs: BMP 07/21/17 18:00 Sodium 132 L - Attending Attestation I examined this patient and my medical decision-making was reviewed with the BEE RANCHER. I agree with the documented findings, disposition and treatment plan as described except to the extent set forth below. Admitted for HCAP, neutropenic sepsis secondary to HCAP, acute PE, awaiting Hematology consultation in regards to continuation of therapeutic anticoagulation. Continue empiric IV abx, IV fluids. closely monitor sodium level, avoid overcorrection. NO more than 6-8meq in 24 hours. Hematology follow up requested.
[2017-07-21] MEDS: *HR* OxyCODONE/APAP 5/325 TABLET PO PRN ×2 (18:09→23:56)
[2017-07-21] MEDS: Ipratropium/Albuterol Neb 3 ML IH SCH ×2 (20:40→21:34)
[2017-07-21] MEDS ORDERED: Gabapentin 300 MG CAPSULE PO SCH (21:00)
[2017-07-21] MEDS ORDERED: tiZANidine 4 MG TABLET PO SCH (21:00)
[2017-07-21] MEDS ORDERED: Budesonide/Formoterol 160/4.5 MDI IH SCH (22:00)
--- NOTE | 2017-07-21 22:44 | Event Note ---
Date of Encounter: 07/21/17 Time of Encounter: 22:42 I was asked by the patient starts to see this patient due to low blood pressure. Ms. Sarkar, was admitted earlier today for management of neutropenic fever. She has a history of breast cancer currently undergoing chemotherapy. Upon evaluation of the bedside the patient is awake alert oriented 3, ill- appearing, complains of generalized body aches and pains. Vital signs reviewed revealed blood pressure of 84/48 manual, temperature 96.2, respirations 15, heart rate 75. On exam she has ill-appearing, no acute distress. Cardiovascular exam reveals regular S1-S2, no murmurs peripheral pulses are thready Lung auscultation was clear bilaterally Abdomen soft nontender nondistended Laboratory data: White blood cell count 0.2. Chest CT reveals bilateral infiltrates and a small subsegmental PE. Assessment and plan: Neutropenic fever secondary to bilateral pneumonia in a patient with breast cancer currently undergoing chemotherapy and septic shock secondary to pneumonia Plan: The patient received vigorous fluid resuscitation and in spite of this she remains hypotensive. The latest blood pressure checked at the bedside was 68/25. I will transfer the patient to the ICU, continue with IV fluids, start norepinephrine drip, recheck CBC CMP and lactic acid. Check VBG. Place Sanchez catheter to monitor urine output closely. I will switch antibiotics to cefepime 2 g IV every 8 hours and continue vancomycin for treatment of neutropenic fever. Continue with neutropenic precautions. The high probability of emergent and significant clinical decompensation with potential impairment of organ function including cardiovascular and renal functions required my full attention and presence at the bedside. I spent 40 minutes of critical care time which involved decision making of high complexity to assess, manipulate, and support vital organ system, in order to prevent further life threatening deterioration of the patient's condition. The critical care time was spent in the patient's room and its close proximity and involved obtaining updated history and examining the patient, reviewing telemetry tracing , imaging studies and laboratory data, ordering medications and laboratory studies, and reevaluating for clinical response. The time took to perform any procedures was not included in the critical care time quoted above and is billed separately.
--- NOTE | 2017-07-21 22:55 | Event Note ---
Date of Encounter: 07/21/17 Time of Encounter: 22:49
[2017-07-21] MEDS ORDERED: Norepinephrine 4 MG in D5% in Water 250 ML IVC SCH ×2 (23:00→23:57)
[2017-07-21] MEDS ORDERED: *HR* OxyCODONE/APAP 5/325 TABLET PO PRN (23:57)
[2017-07-22] MEDS ORDERED: Piperacillin/Tazobactam 3.375 GM in D5% in Water (Mini-Bag+) 100 ML IVPB SCH
[2017-07-22] MEDS ORDERED: *HR* Morphine 2 MG/ML SYRINGE IVP ONE (01:59)
[2017-07-22] MEDS ORDERED: *HR* HYDROmorphone (PF) 1 MG/ML SYRINGE IVP ONE (02:02)
[2017-07-22 03:06] LABS: Hematocrit 20.1 % (35.3-44.9); Mean Corpuscular HGB Conc 34.8 g/dL (31.6-35.5); Mean Corpuscular Hemoglobin 31.1 pg (28.0-33.3); Mean Corpuscular Volume 89.3 fL (83.0-100.0); Mean Platelet Volume 10.1 fL (9.4-12.4); Red Blood Count 2.25 M/mcL (3.82-4.97); Red Cell Distribution Width 15.2 % (11.5-14.5)
[2017-07-22 03:08] LABS: Platelet Count 41 K/mcL (140-400)
[2017-07-22 03:17] LABS: BUN/Creatinine Ratio 14 (6-26); Blood Urea Nitrogen 8 mg/dL (7-20); Calcium 8.3 mg/dL (8.6-10.8); Carbon Dioxide 21 mEq/L (19-29); Chloride 109 mEq/L (98-109); Glucose 180 mg/dL (70-99); Osmolality,Calculated 289 (280-300); Potassium 2.9 mEq/L (3.5-4.5); Sodium 138 mEq/L (136-145); eGFR For African Americans > 60 (> 60); eGFR For Non-African Americans > 60 (> 60)
[2017-07-22 03:26] LABS: Phosphorous 0.9 mg/dL (2.3-4.7)
[2017-07-22] MEDS ORDERED: Magnesium Sulfate 2 GM in D5% in Water 100 ML IVPB PRN (03:43)
[2017-07-22] MEDS ORDERED: Potassium Phosphate 44 MEQ in 0.9 % Sodium Chloride 250 ML IVPB PRN (03:43)
[2017-07-22] MEDS ORDERED: Sodium Phosphate 30 MMOL in D5% in Water 100 ML IVPB PRN (03:43)
[2017-07-22] MEDS ORDERED: Calcium Gluconate 1,000 MG in D5% in Water 100 ML IVPB PRN (03:43)
[2017-07-22] MEDS ORDERED: Ipratropium/Albuterol Neb 3 ML IH SCH (04:00)
[2017-07-22 04:34] LABS: VBG HCO3 22.1 mEq/L (21-27); VBG PH 7.35 pH Units (7.32-7.42)
[2017-07-22 04:41] LABS: INR 1.3
[2017-07-22 04:43] LABS: Activated Partial Thrombo Time 41.4 Seconds (26.0-36.0)
[2017-07-22] MEDS ORDERED: TAPENTADOL HCL 50 MG PO SCH (05:00)
[2017-07-22] MEDS ORDERED: Vancomycin 1,000 MG in D5% in Water 250 ML IVPB SCH (06:00)
--- NOTE | 2017-07-22 06:23 | Electrocardiograph Report ---
[employer] 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
[2017-07-22 06:25] VITALS: BP 96/62
--- NOTE | 2017-07-22 06:58 | Event Note ---
Date of Encounter: 07/22/17 Time of Encounter: 06:56 Patient wanted to sign out AMA. She said that she had a court date that she wanted to attend with her family members. I went over the risks of her leaving AMA including hypotension, worsening infection, worsening leukopenia, respiratory failure secondary to PE, and even . I offered continuation of current therapy for stabilization, including fluids, possible pressors, blood transfusion. The patient stated she understood these risks and was adamant about leaving. She signed AMA papers with myself and Nurse Mccord as a witness.
[2017-07-22] MEDS ORDERED: Cefepime HCl 2,000 MG in D5% in Water (Mini-Bag+) 100 ML IVPB SCH (08:00)
[2017-07-22] MEDS ORDERED: tiZANidine 4 MG TABLET PO SCH (09:00)
[2017-07-22] MEDS ORDERED: Loratadine 10 MG TABLET PO SCH ×2 (09:00)
[2017-07-22] MEDS ORDERED: Gabapentin 300 MG CAPSULE PO SCH (09:00)
[2017-07-22] MEDS ORDERED: Budesonide/Formoterol 160/4.5 MDI IH SCH (10:00)
[2017-07-24] MEDS ORDERED: *HR* FentaNYL PATCH 12 MCG PATCH TD SCH (17:00)
== END 2017-07-22 08:43 | disposition left against medical advice (07) | DRG 720 ==
LOC: 2NENU 12:04 → EMEROO 12:04 → 2NENU 17:10 → ICNU 23:29
PROVIDERS: ADMIT Internal Medicine; ATTEND Internal Medicine

== ENCOUNTER 2017-09-05 21:10 | Inpatient (IN) ==
[2017-09-05] MEDS ORDERED: *HR* HYDROmorphone (PF) 1 MG/ML SYRINGE IVP ONE (21:57)
[2017-09-05] MEDS ORDERED: Ondansetron 4 MG/2 ML VIAL IVP ONE (21:57)
[2017-09-05] MEDS ORDERED: 0.9 % Sodium Chloride 1,000 ML IVC ONE ×2 (21:57→23:26)
--- NOTE | 2017-09-05 22:15 | Emergency Department Note ---
Disposition Clinical Impression: Dyspnea, Productive cough, Elevated troponin Disposition: Admitted As Inpatient Condition: Fair SOB HPI - General Chief Complaint: ED General Medical Stated Complaint: thinks pneumonia has breast cancer/doing chemo Time Seen by Provider: 09/05/17 21:33 Source: patient Mode of arrival: private vehicle Limitations: no limitations Nursing Notes Reviewed: Yes Vital Signs Reviewed: Yes - History of Present Illness 47-year-old female history of COPD, lung cancer on chemotherapy with last treatment on , PE currently on anticoagulation who presents to the ER due to cough and shortness of breath. Patient states she has felt like she has had fevers at home for the last 2 days as well as productive sputum with brown mucus. She is noted shortness of breath with the cough. She was admitted in June under similar circumstances found to have pneumonia and a pulmonary embolism. She reports that she is usually neutropenic. She follows with oncology here and is currently going through a round of chemotherapy prior to initiating radiation. She denies any chest pain. She complains of generalized arthralgias. No other complaints. Pt Subjective Complaint: shortness of breath, cough Onset (ago): day(s) (2) Context: recent illness Severity: moderate Consistency/Duration: intermittent Improves with: nothing Worsens with: nothing Known history of: PE, other (Lung cancer) Associated symptoms: Reports: fever, cough, sputum production. Denies: chest pain Treatment prior to arrival: none Cough present: Yes Cough Description: Involuntary Cough Frequency: Intermittent Sputum production: Yes Sputum Amount: Small Sputum Color: Brown - Related Data Home oxygen amount: none Home Medications Medication Instructions Recorded Confirmed Ibuprofen [Ibuprofen] 800 mg PO Q8H PRN 07/21/17 09/06/17 Previous Rx's Medication Instructions Recorded Escitalopram [Lexapro] 20 mg PO BID #60 tablet 05/04/17 Ipratropium/Albuterol Neb [Duoneb] 3 ml IH [id number] PRN #100 inhsol 05/04/17 Quetiapine Fumarate [Seroquel] 100 mg PO HS #30 tablet 05/04/17 Loratadine [Claritin] 10 mg PO DAILY #90 tablet 05/18/17 Magic Mouthwash [Magic Mouthwash 10 ml PO QID PRN #240 ml 05/18/17 BLM] Ondansetron [Zofran] 8 mg PO Q8H PRN #90 tablet 05/18/17 Promethazine [Phenergan] 25 mg PO Q6HR #40 tablet 07/13/17 Albuterol Sulfate [Albuterol 2 puff IH Q4HR PRN #1 hfa.aer.ad 08/18/17 Inhaler] Gabapentin [Neurontin] 300 mg PO BID #60 capsule 08/18/17 Hydromorphone HCl [Exalgo] 8 mg PO DAILY #30 tab.er.24h 08/25/17 Omeprazole [PriLOSEC] 20 mg PO DAILY #90 cap 08/25/17 ALPRAZolam [Xanax 0.5 MG Tablet] 0.5 mg PO Q6H PRN #90 tablet 08/27/17 Rivaroxaban [Xarelto] 20 mg PO DAILY #30 tablet 08/27/17 Oxycodone HCl [Oxaydo] 1 - 2 tab PO Q4-6H PRN #90 09/03/17 tablet.orl Allergies Allergy/AdvReac Type Severity Reaction Status Date / Time prochlorperazine AdvReac Intermediate Vomiting Verified 09/05/17 21:28 [From Compazine] tramadol AdvReac Intermediate Anxiety Verified 09/05/17 21:28 All systems ED: reviewed and negative except as stated. Constitutional: Reports: fever, chills Cardiovascular: Denies: chest pain Respiratory: Reports: cough, dyspnea, sputum production Gastrointestinal: Denies: abdominal pain, nausea, vomiting, diarrhea Musculoskeletal: Reports: arthralgia Past Medical History - Past Medical History Attestation: Yes The following information was validated with the patient. Source: patient Medical history: Reports: cancer, COPD Surgical history: Reports: appendectomy, cancer surgery 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: bipolar, depression [employer] history: Reports: bilateral tubal ligation - Social History Smoking Status: Current every day smoker Smokeless Tobacco Status: No Alcohol use: Reports: none Drug use: Reports: none, marijuana, prescription drug abuse Physical Exam - General Limitations: no limitations General appearance: alert, in no apparent distress - Head Head exam: atraumatic, normocephalic, normal inspection - Eye Eye exam: Present: normal appearance, EOMI - ENT ENT exam: normal exam - Neck Neck exam: Present: normal inspection, full ROM - Chest Chest inspection: Present: normal inspection, symmetric chest wall rise - Respiratory Respiratory exam: Present: normal lung sounds bilaterally - Cardiovascular Cardiovascular exam: Present: normal rhythm, tachycardia, normal heart sounds - Abdominal Exam Abdominal exam: Present: soft, Non-Tender. Absent: tenderness, distention, rigidity - Extremities Exam Extremities exam: Present: normal inspection, full ROM - Expanded Upper Extremity Exam Shoulder exam: Present: normal inspection, full ROM Arm exam: Present: normal inspection, full ROM Elbow exam: Present: normal inspection, full ROM Forearm/Wrist exam: Present: normal inspection, full ROM Hand exam: Present: normal inspection, full ROM Vascular exam: Normal: radial pulse - Expanded Lower Extremity Exam Hip/Pelvis exam: Present: normal inspection, full ROM Upper leg exam: Present: normal inspection, full ROM Knee exam: Present: normal inspection, full ROM Lower leg exam: Present: normal inspection, full ROM Ankle exam: Present: normal inspection, full ROM Foot/toe exam: Present: normal inspection, full ROM Neurovascular/Tendon exam: Absent: motor deficit, sensory deficit - Neurological Exam Neurological exam: Present: alert, other (GCS 15. Nonfocal neurologic exam. Moves all extremities equally.) - Psychiatric Psychiatric exam: Present: normal affect, normal mood - Skin Skin exam: Present: warm, dry, intact, normal color Course Course Narrative: Patient seen and examined. Temp 100.3 here and tachycardic at 110. We will obtain EKG, chest x-ray as well as labs including troponin, BNP, lactate and blood cultures. - Reevaluation(s) Reevaluation #1: I discussed results of imaging and lab work with the patient. She is chest pain -free at this time despite her elevated troponin. Patient given an aspirin. Agreeable with having a CT of her chest performed. Her blood pressure was noted to be hypotensive here and will be getting a second liter of fluids. Reevaluation #2: She is agreeable with staying in the hospital. I reviewed her prior visit which showed she was in the ICU due to hypotension at that time. No pressure chronic currently but we will continue to monitor closely. Vital Signs Temperature 100.3 F H 09/05/17 21:28 Pulse Rate 110 09/05/17 21:28 Respiratory Rate 18 09/05/17 21:28 Blood Pressure 104/72 09/05/17 21:28 O2 Sat by Pulse Oximetry 95 09/05/17 21:28 Temperature 98.6 F 09/06/17 02:26 Pulse Rate 87 09/06/17 02:26 Respiratory Rate 16 09/06/17 04:50 Blood Pressure 98/71 09/06/17 02:26 O2 Sat by Pulse Oximetry 91 09/06/17 04:50 Oxygen Delivery Oxygen Delivery Nasal Cannula Shortness of Breath/Dyspnea - MDM Narrative Medical decision making narrative: 47-year-old female history of lung cancer on chemotherapy, pulmonary embolism on anticoagulation who presents to the ER due to cough, shortness of breath and productive sputum. Has been going on for 2 days. Subjective fevers at home. She was noted to be 100.3 here. Also initially tachycardic at 110. Complains of generalized aches after her chemotherapy. She was admitted 2 months ago for healthcare associated pneumonia. She has been borderline hypotensive while here. Chest x-ray and CTA of the chest initially no acute abnormalities. Her white count is within normal limits and her absolute neutrophil count is 5000 or greater. Patient given 2 L of normal saline here. We controlled her pain with a milligram of Dilaudid and fentanyl. Patient given vancomycin and Zosyn and Levaquin. Admitted to the hospitalist service. - Lab Data Lab results reviewed: Yes I reviewed the patient's lab results. Result diagrams: 09/05/17 22:05 09/06/17 05:20 Lab Results 09/05/17 09/05/17 09/05/17 Range/Units 22:05 22:05 22:05 WBC 6.5 (4.3-11.1) K/mcL RBC 3.26 L (3.82-4.97) M/mcL Hgb 10.3 L (11.5-15.4) g/dL Hct 30.6 L (35.3-44.9) % MCV 93.9 (83.0-100.0) fL MCH 31.6 (28.0-33.3) pg MCHC 33.7 (31.6-35.5) g/dL RDW 18.6 H (11.5-14.5) % Plt Count 243 (140-400) K/mcL MPV 9.4 (9.4-12.4) fL Immature Gran % 0.5 (0-4) % Seg Neutrophils % 76.6 % Lymphocytes % 11.9 % Monocytes % 4.7 % Eosinophils % 5.7 % Basophils % 0.6 % Neutrophils # 5.0 (1.6-8.9) K/mcL Lymphocytes # 0.8 (0.6-4.6) K/mcL Monocytes # 0.3 (0.0-1.3) K/mcL Eosinophils # 0.4 (0.0-0.6) K/mcL Basophils # 0.0 (0.0-0.2) K/mcL PT 11.5 (9.4-12.1) Seconds INR 1.1 APTT 30.6 (26.0-36.0) Seconds Sodium 137 (136-145) mEq/L Potassium 3.5 (3.5-4.5) mEq/L Chloride 102 (98-109) mEq/L Carbon Dioxide 28 (19-29) mEq/L BUN 13 (7-20) mg/dL Creatinine 0.62 (0.57-1.11) mg/dL Est GFR ( Amer) > 60 (> 60) Est GFR (Non-Af Amer) > 60 (> 60) BUN/Creatinine Ratio 21 (6-26) Glucose 87 (70-99) mg/dL Calculated Osmolality 283 (280-300) Lactic Acid (0.5-2.2) mmol/L Calcium 8.8 (8.6-10.8) mg/dL Total Bilirubin 0.4 (0.2-1.2) mg/dL Direct Bilirubin 0.1 (0.0-0.5) mg/dL Indirect Bilirubin 0.3 (0.0-1.2) mg/dL AST 20 (5-34) Units/L ALT 20 (0-55) Units/L Alkaline Phosphatase 82 (38-126) Units/L Troponin I (0-0.03) ng/mL B-Natriuretic Peptide (0-100) pg/mL Serum Total Protein 6.3 (6.0-8.3) g/dL Albumin 3.1 L (3.5-5.0) g/dL Globulin 3.2 (2.4-3.5) g/dL Albumin/Globulin Ratio 1.0 L (1.1-2.2) Urine Color (Yellow) Urine Clarity (Clear) Urine pH (5.0-8.0) pH Units Ur Specific [place] (1.010-1.025) Urine Protein (Neg-Trace) mg/dL Urine Glucose (UA) (Normal) mg/dL Urine Ketones (Negative) mg/dL Urine Blood (Negative) Urine Nitrite (Negative) Urine Bilirubin (Negative) Urine Urobilinogen (Normal) mg/dL Ur Leukocyte Esterase (Negative) Urine Microscopic RBC (0-3) per hpf Urine Microscopic WBC (0-3) per hpf Ur Squamous Epith Cells (None-Few) per lpf Urine Bacteria (None-Few) per hpf Hyaline Casts (None-Few) per lpf Ur Culture Indicated? (NO) 09/05/17 09/05/17 09/05/17 Range/Units 22:05 22:05 22:05 WBC (4.3-11.1) K/mcL RBC (3.82-4.97) M/mcL Hgb (11.5-15.4) g/dL Hct (35.3-44.9) % MCV (83.0-100.0) fL MCH (28.0-33.3) pg MCHC (31.6-35.5) g/dL RDW (11.5-14.5) % Plt Count (140-400) K/mcL MPV (9.4-12.4) fL Immature Gran % (0-4) % Seg Neutrophils % % Lymphocytes % % Monocytes % % Eosinophils % % Basophils % % Neutrophils # (1.6-8.9) K/mcL Lymphocytes # (0.6-4.6) K/mcL Monocytes # (0.0-1.3) K/mcL Eosinophils # (0.0-0.6) K/mcL Basophils # (0.0-0.2) K/mcL PT (9.4-12.1) Seconds INR APTT (26.0-36.0) Seconds Sodium (136-145) mEq/L Potassium (3.5-4.5) mEq/L Chloride (98-109) mEq/L Carbon Dioxide (19-29) mEq/L BUN (7-20) mg/dL Creatinine (0.57-1.11) mg/dL Est GFR ( Amer) (> 60) Est GFR (Non-Af Amer) (> 60) BUN/Creatinine Ratio (6-26) Glucose (70-99) mg/dL Calculated Osmolality (280-300) Lactic Acid 0.8 (0.5-2.2) mmol/L Calcium (8.6-10.8) mg/dL Total Bilirubin (0.2-1.2) mg/dL Direct Bilirubin (0.0-0.5) mg/dL Indirect Bilirubin (0.0-1.2) mg/dL AST (5-34) Units/L ALT (0-55) Units/L Alkaline Phosphatase (38-126) Units/L Troponin I 0.11 H* (0-0.03) ng/mL B-Natriuretic Peptide 51 (0-100) pg/mL Serum Total Protein (6.0-8.3) g/dL Albumin (3.5-5.0) g/dL Globulin (2.4-3.5) g/dL Albumin/Globulin Ratio (1.1-2.2) Urine Color (Yellow) Urine Clarity (Clear) Urine pH (5.0-8.0) pH Units Ur Specific [place] (1.010-1.025) Urine Protein (Neg-Trace) mg/dL Urine Glucose (UA) (Normal) mg/dL Urine Ketones (Negative) mg/dL Urine Blood (Negative) Urine Nitrite (Negative) Urine Bilirubin (Negative) Urine Urobilinogen (Normal) mg/dL Ur Leukocyte Esterase (Negative) Urine Microscopic RBC (0-3) per hpf Urine Microscopic WBC (0-3) per hpf Ur Squamous Epith Cells (None-Few) per lpf Urine Bacteria (None-Few) per hpf Hyaline Casts (None-Few) per lpf Ur Culture Indicated? (NO) 09/05/17 09/05/17 Range/Units 22:40 23:23 WBC (4.3-11.1) K/mcL RBC (3.82-4.97) M/mcL Hgb (11.5-15.4) g/dL Hct (35.3-44.9) % MCV (83.0-100.0) fL MCH (28.0-33.3) pg MCHC (31.6-35.5) g/dL RDW (11.5-14.5) % Plt Count (140-400) K/mcL MPV (9.4-12.4) fL Immature Gran % (0-4) % Seg Neutrophils % % Lymphocytes % % Monocytes % % Eosinophils % % Basophils % % Neutrophils # (1.6-8.9) K/mcL Lymphocytes # (0.6-4.6) K/mcL Monocytes # (0.0-1.3) K/mcL Eosinophils # (0.0-0.6) K/mcL Basophils # (0.0-0.2) K/mcL PT (9.4-12.1) Seconds INR APTT (26.0-36.0) Seconds Sodium (136-145) mEq/L Potassium (3.5-4.5) mEq/L Chloride (98-109) mEq/L Carbon Dioxide (19-29) mEq/L BUN (7-20) mg/dL Creatinine (0.57-1.11) mg/dL Est GFR ( Amer) (> 60) Est GFR (Non-Af Amer) (> 60) BUN/Creatinine Ratio (6-26) Glucose (70-99) mg/dL Calculated Osmolality (280-300) Lactic Acid 0.7 (0.5-2.2) mmol/L Calcium (8.6-10.8) mg/dL Total Bilirubin (0.2-1.2) mg/dL Direct Bilirubin (0.0-0.5) mg/dL Indirect Bilirubin (0.0-1.2) mg/dL AST (5-34) Units/L ALT (0-55) Units/L Alkaline Phosphatase (38-126) Units/L Troponin I (0-0.03) ng/mL B-Natriuretic Peptide (0-100) pg/mL Serum Total Protein (6.0-8.3) g/dL Albumin (3.5-5.0) g/dL Globulin (2.4-3.5) g/dL Albumin/Globulin Ratio (1.1-2.2) Urine Color Yellow (Yellow) Urine Clarity Clear (Clear) Urine pH 6.5 (5.0-8.0) pH Units Ur Specific [place] 1.010 (1.010-1.025) Urine Protein Negative (Neg-Trace) mg/dL Urine Glucose (UA) Normal (Normal) mg/dL Urine Ketones Negative (Negative) mg/dL Urine Blood Trace H (Negative) Urine Nitrite Negative (Negative) Urine Bilirubin Negative (Negative) Urine Urobilinogen Normal (Normal) mg/dL Ur Leukocyte Esterase Trace H (Negative) Urine Microscopic RBC 0-3 (0-3) per hpf Urine Microscopic WBC 5-15 H (0-3) per hpf Ur Squamous Epith Cells Many H (None-Few) per lpf Urine Bacteria Few (None-Few) per hpf Hyaline Casts None Seen (None-Few) per lpf Ur Culture Indicated? YES A (NO) - Radiology Data Radiology results reviewed: Yes I reviewed the patient's radiology results. Chest X-Ray 09/05/17 21:39 IMPRESSION: Negative chest. D/ / Jason Donaldson MD / Jason Donaldson MD Interpreting Provider: Jason Donaldson MD Chest X-Ray 09/05/17 21:39 IMPRESSION: Negative chest. D/ / Jason Donaldson MD / Jason Donaldson MD Interpreting Provider: Jason Donaldson MD Chest CTA 09/05/17 23:22 IMPRESSION: No evidence of pulmonary embolism or acute pulmonary abnormality. D/ / Keny Gaytan MD / Keny Gaytan MD Interpreting Provider: Keny Gaytan MD - EKG Data EKG attestation: Yes I reviewed and interpreted this EKG. EKG results narrative: EKG demonstrates sinus rhythm with a rate of 98 bpm. Normal axis. Normal intervals. Normal R-wave progression. T-wave inversions in lead 3 unchanged from previous. No gross ST elevations or depressions. No acute ischemic findings. No significant changes from previous EKG dated 07/21/17. S[facility] - [facility]. Situation: Demographics, MOA Background: Presenting Complaint, Relevant PMH, Meds, & Allergies Assessment: Vital Signs, Course and respsone to treatment, Exam Concerns, Patient/Family Expectation, Pertinant Lab Results, Outstanding Labs Recommendation: Barrier(s) to disposition, Recommendation based on pending studies, treatments, or consults Naeem Report Given to: Dr. Crystal Hartley Repor Time: 01:13 Attestation Statement - Attestation Attestation: I examined this patient and my medical decision-making was reviewed with the Resident Physician. I agree with the documented findings, disposition and treatment plan as described except to the extent set forth below. Patient ED for cough and fever. Cough productive of greenish brown sputum. Patient's currently on active chemotherapy for breast cancer with her last dose being a couple of days ago. History of PE and pneumonia. She is currently on Xarelto. On examination she is in no acute distress. Lungs clear. Febrile 100.3. Plan. Septic workup. Patient with no source. CTA negative for PE or consolidation. Started on broad -spectrum antibiotics that she is now dropped her blood pressure. Giving second liter of fluid. We will start pressors if still low.
[2017-09-05 22:17] LABS: Basophils % 0.6 %; Eosinophils # 0.4 K/mcL (0.0-0.6); Eosinophils % 5.7 %; Hematocrit 30.6 % (35.3-44.9); Hemoglobin 10.3 g/dL (11.5-15.4); Immature Granulocytes % 0.5 % (0-4); Lymphocytes # 0.8 K/mcL (0.6-4.6); Lymphocytes % 11.9 %; Mean Corpuscular HGB Conc 33.7 g/dL (31.6-35.5); Mean Corpuscular Hemoglobin 31.6 pg (28.0-33.3); Mean Corpuscular Volume 93.9 fL (83.0-100.0); Mean Platelet Volume 9.4 fL (9.4-12.4); Monocytes # 0.3 K/mcL (0.0-1.3); Monocytes % 4.7 %; Platelet Count 243 K/mcL (140-400); Red Blood Count 3.26 M/mcL (3.82-4.97); Red Cell Distribution Width 18.6 % (11.5-14.5); Segmented Neutrophils % 76.6 %
[2017-09-05 22:22] LABS: INR 1.1; Prothrombin Time 11.5 Seconds (9.4-12.1)
[2017-09-05 22:25] LABS: Activated Partial Thrombo Time 30.6 Seconds (26.0-36.0)
[2017-09-05 22:34] LABS: Alanine Aminotransferase 20 Units/L (0-55); Albumin 3.1 g/dL (3.5-5.0); Alkaline Phosphatase 82 Units/L (38-126); Aspartate Amino Transferase 20 Units/L (5-34); BUN/Creatinine Ratio 21 (6-26); Bilirubin,Direct 0.1 mg/dL (0.0-0.5); Bilirubin,Indirect 0.3 mg/dL (0.0-1.2); Bilirubin,Total 0.4 mg/dL (0.2-1.2); Blood Urea Nitrogen 13 mg/dL (7-20); Calcium 8.8 mg/dL (8.6-10.8); Carbon Dioxide 28 mEq/L (19-29); Chloride 102 mEq/L (98-109); Globulin 3.2 g/dL (2.4-3.5); Glucose 87 mg/dL (70-99); Osmolality,Calculated 283 (280-300); Potassium 3.5 mEq/L (3.5-4.5); Sodium 137 mEq/L (136-145); Total Protein 6.3 g/dL (6.0-8.3); eGFR For African Americans > 60 (> 60); eGFR For Non-African Americans > 60 (> 60)
[2017-09-05 22:48] LABS: Bilirubin,Urine Negative (Negative); Blood,Urine Trace (Negative); Clarity,Urine Clear (Clear); Color,Urine Yellow (Yellow); Glucose,Urine (UA) Normal (Normal); Ketones,Urine Negative (Negative); Leukocyte Esterase,Urine Trace (Negative); Nitrite,Urine Negative (Negative); PH,Urine 6.5 pH Units (5.0-8.0); Protein,Urine Negative (Neg-Trace); Urobilinogen,Urine Normal (Normal)
[2017-09-05 22:50] LABS: Bacteria,Urine Few per hpf (None-Few); Hyaline Casts,Urine None Seen per lpf (None-Few); RBC,Urine 0-3 per hpf (0-3); Squamous Epithelial Cell,Urine Many per lpf (None-Few)
[2017-09-05] MEDS ORDERED: Aspirin 325 MG TABLET PO ONE (23:15)
[2017-09-05] MEDS: *HR* HYDROmorphone (PF) 1 MG/ML SYRINGE IVP ONE ×2 (23:23→23:29)
[2017-09-05] MEDS: *HR* FentaNYL (PF) 100 MCG/2 ML VIAL IVP ONE (23:43)
[2017-09-06] MEDS ORDERED: Piperacillin/Tazobactam 3.375 GM in D5% in Water (Mini-Bag+) 100 ML IVPB ONE (00:25)
[2017-09-06] MEDS ORDERED: Levofloxacin 500 MG/100 ML 500 MG/100 ML BAG IVPB ONE (00:25)
[2017-09-06] MEDS ORDERED: Vancomycin 1,000 MG in D5% in Water 250 ML IVPB ONE (00:25)
[2017-09-06] MEDS: *HR* FentaNYL (PF) 100 MCG/2 ML VIAL IVP ONE (00:46)
--- NOTE | 2017-09-06 01:27 | Internal Med History&Physical ---
<Camron Rebollar - Last Filed: 09/06/17 04:11> Date of Encounter: 09/06/17 Time of Encounter: 01:27 Assessment and Plan (1) Sepsis Current visit: Yes Status: Acute 2 SIRS critieria: Fever 100.3F, HR 101 UTI vs AECOPD as source of infection Blood, sputum, and urine cultures pending Patient has Port-A-Cath right upper chest Hypotensive since admission with BP 79-104/50-72 Continue IVF CXR and CTA negative for pulmonary embolism or acute pulmonary abnormality Patient given Vanc, Zosyn, and Levaquin in the ED Continue Vanc and Levaquin De-escalate antibiotics once cultures resulted Qualifiers: Sepsis type: sepsis due to unspecified organism Qualified Code(s): A41.9 - Sepsis, unspecified organism (2) UTI (urinary tract infection) Current visit: No Status: Acute Urine culture pending Continue Levaquin De-escalate antibiotics once cultures back Qualifiers: Urinary tract infection type: acute cystitis Hematuria presence: without hematuria Qualified Code(s): N30.00 - Acute cystitis without hematuria (3) Acute exacerbation of chronic obstructive pulmonary disease (COPD) Current visit: Yes Status: Acute Continue antibiotics, Steroids, Duonebs, Mucinex, and incentive spirometry Patient has h/o chronic steroid use, consider steroid taper on discharge (4) Pulmonary embolism Current visit: Yes Status: Chronic CTA negative for PE Continue Xarelto Qualifiers: Pulmonary embolism type: other Chronicity: acute Acute cor pulmonale presence: without acute cor pulmonale Qualified Code(s): I26.99 - Other pulmonary embolism without acute cor pulmonale (5) Anemia Current visit: No Status: Chronic Consider Epogen if worsening anemia on chemo Continue to monitor Qualifiers: Other causes of anemia: chronic disease, neoplastic Qualified Code(s): D63.0 - Anemia in neoplastic disease (6) Elevated troponin Current visit: Yes Status: Acute Initial troponin 0.11, Likely demand ischemia from sepsis. Trend serial troponins. (7) DVT prophylaxis Current visit: Yes Status: Acute Continue Xarelto (8) Breast cancer in female Current visit: Yes Status: Acute S/p second round of chemotherapy 3 days ago for breast cancer. Anticipate future surgery and radiation Oncologist Dr. Pompa Continue pain control and outpatient treatment Qualifiers: Breast location: unspecified site of breast Estrogen receptor status: negative Laterality: right Qualified Code(s): C50.911 - Malignant neoplasm of unspecified site of right female breast; Z17.1 - Estrogen receptor negative status [ER-]; Z17.1 - Estrogen receptor negative status [ER-] Internal Medicine - H&P: HPI Chief complaint: SOB Admitted From: Home Plans for Post Hospital Care: Home History of present illness: Ms. Sarkar is a 47 year old female with a PMH of COPD, tobacco dependence, PE currently on anticoagulation, and s/p second round of chemotherapy 3 days ago for breast cancer that presented c/o productive cough with brown colored sputum , shortness of breath, CP, and fevers up to 100.3F for the past 2 days. CP is on the right side, radiates to her shoulders, and nothing makes it better or worse. She reports that she is usually neutropenic and undergoing chemotherapy prior to surgery/ initiating radiation. Of note, patient found to have pneumonia and a pulmonary embolism on previous admission 07/21/17 and has been on Xarelto. Patient denies chills, palpitations, hemoptysis, abd pain, N/V/D, leg edema, or recent travel. She has a Port-a-cath right upper chest. In the ED, CXR was negative and CTA revealed no evidence of pulmonary embolism or acute pulmonary abnormality. Past Med Surg Social Fam HX - Past Medical History Medical history: cancer (Breast, Renal cell carcinoma), COPD Psychiatric history: bipolar, depression - Past Surgical History Surgical History: appendectomy, cancer surgery - Social History Smoking Status: Current every day smoker Smokeless Tobacco Status: No Alcohol use: none Drug use: none, marijuana, prescription drug abuse Current living situation: Home, With Family - Family History Mother Living Status: Still Living Hx Family Cardiac Disorders: Yes (CVA) Father Living Status: Still Living Hx Family Cancer: Yes (Bone) Internal Medicine - H&P: Meds Escitalopram [Lexapro] 20 mg PO BID #60 tablet 05/04/17 [Rx] Ipratropium/Albuterol Neb [Duoneb] 3 ml IH [id number] PRN #100 inhsol 05/04/17 [Rx] Quetiapine Fumarate [Seroquel] 100 mg PO HS #30 tablet 05/04/17 [Rx] Loratadine [Claritin] 10 mg PO DAILY #90 tablet 05/18/17 [Rx] Magic Mouthwash [Magic Mouthwash BLM] 10 ml PO QID PRN #240 ml 05/18/17 [Rx] Ondansetron [Zofran] 8 mg PO Q8H PRN #90 tablet 05/18/17 [Rx] Promethazine [Phenergan] 25 mg PO Q6HR #40 tablet 07/13/17 [Rx] Ibuprofen [Ibuprofen] 800 mg PO Q8H PRN 07/21/17 [History] Albuterol Sulfate [Albuterol Inhaler] 2 puff IH Q4HR PRN #1 hfa.aer.ad 08/18/17 [Rx] Gabapentin [Neurontin] 300 mg PO BID #60 capsule 08/18/17 [Rx] Hydromorphone HCl [Exalgo] 8 mg PO DAILY #30 tab.er.24h 08/25/17 [Rx] Omeprazole [PriLOSEC] 20 mg PO DAILY #90 cap 08/25/17 [Rx] ALPRAZolam [Xanax 0.5 MG Tablet] 0.5 mg PO Q6H PRN #90 tablet 08/27/17 [Rx] Rivaroxaban [Xarelto] 20 mg PO DAILY #30 tablet 08/27/17 [Rx] Oxycodone HCl [Oxaydo] 1 - 2 tab PO Q4-6H PRN #90 tablet.orl 09/03/17 [Rx] 3 Allergy/AdvReac Type Severity Reaction Status Date / Time prochlorperazine AdvReac Intermediate Vomiting Verified 09/05/17 21:28 [From Compazine] tramadol AdvReac Intermediate Anxiety Verified 09/05/17 21:28 All Systems PM: A 10-system review of systems was performed and is negative for pertinent findings except as documented above in the HPI. - Constitutional Constitutional: fatigue, fever(s), lethargy, weakness, no chills, no weight gain , no weight loss - EENT Eyes: no change in vision Nose, mouth and throat: nasal congestion, no post-nasal drip, no sinus pressure , no sore throat - Cardiovascular Cardiovascular ROS IM: chest pain, no palpitations - Respiratory Respiratory: cough, dyspnea, chest congestion, excessive phlegm production, no hemoptysis - Gastrointestinal Gastrointestinal: no abdominal pain, no cramping, no diarrhea, no hematemesis, no nausea, no vomiting - Genitourinary Genitourinary: no dysuria, no hematuria, no urinary frequency, no urinary urgency - Musculoskeletal Musculoskeletal ROS IM: back pain, no atrophy, no numbness, no tingling - Integumentary Integumentary IM: no erythema, no new lesions - Neurological Neurological ROS: no dizziness, no numbness, no tingling - Psychiatric Psychiatric: anxiety, no depression - Endocrine Endocrine IM: no polydipsia, no polyphagia, no polyuria - Hematologic/Lymphatic Hematologic/Lymphatic: no easy bleeding, no easy bruising, no lymphadenopathy - Constitutional Vitals: Temp Pulse Resp BP Pulse Ox 100.3 F H 85 16 94/55 95 09/05/17 21:28 09/06/17 00:40 09/06/17 00:40 09/06/17 00:40 09/06/17 00:40 General appearance: Present: cooperative, mild distress, A&O X 3, pleasant, answers questions appropriately Exam: appears ill, alopecia - Head Head exam: Present: atraumatic, normocephalic Additional comments: alopcia - Eye Eye exam: Present: EOMI, PERRL - ENT ENT exam: Present: mucous membranes moist, normal oropharynx - Neck Neck exam general surgery: Present: normal inspection, supple. Absent: tenderness, thyromegaly - Respiratory Respiratory exam: Present: decreased breath sounds (bibasilar). Absent: accessory muscle use, respiratory distress, wheezes - Cardiovascular Cardiovascular exam: Present: RRR, +S1, +S2 - GI/Abdominal GI/Abdominal exam: Present: normal bowel sounds, soft. Absent: distended, guarding, tenderness - Extremities Exam Extremities exam: Present: warm. Absent: calf tenderness, pedal edema, tenderness - Back Exam Back exam: Present: normal inspection. Absent: paraspinal tenderness, tenderness, vertebral tenderness - Neurological Exam Neurological exam: Present: alert, oriented X3, speech deficit. Absent: altered , no focal deficits, facial droop - Psychiatric Psychiatric exam: Present: normal affect, normal mood - Skin Skin exam: Present: dry, intact, pallor, warm Internal Med - H&P Results - Labs CBC & Chem 7: 09/05/17 22:05 09/05/17 22:05 - EKG Data -: EKG Interpreted by Myself EKG shows normal: sinus rhythm (NSR 98 bpm. Normal axis. Normal intervals. Normal R-wave progression. T-wave inversions in lead 3. No gross ST elevations or depressions. No acute ischemic findings), axis, intervals, QRS complexes, ST -T waves - EKG Data Prior EKG available for review: yes When compared to previous EKG: there is no significant change - Impressions Impressions Chest X-Ray 09/05/17 21:39 IMPRESSION: Negative chest. D/ / Jason Donaldson MD / Jason Donaldson MD Interpreting Provider: Jason Donaldson MD Chest CTA 09/05/17 23:22 IMPRESSION: No evidence of pulmonary embolism or acute pulmonary abnormality. D/ / Keny Gaytan MD / Keny Gaytan MD Interpreting Provider: Keny Gaytan MD <Ildefonso Coles - Last Filed: 09/06/17 04:45> Date of Encounter: 09/06/17 Time of Encounter: 03:05 - Constitutional Constitutional: fever(s), no chills, no night sweats - EENT Nose, mouth and throat: nasal congestion, no sinus pressure, no sore throat - Cardiovascular Cardiovascular ROS IM: chest pain - Respiratory Respiratory: cough, dyspnea, chest congestion, excessive phlegm production, change in phlegm color - Gastrointestinal Gastrointestinal: no diarrhea, no vomiting - Genitourinary Genitourinary: no dysuria, no flank pain, no hematuria - Musculoskeletal Musculoskeletal ROS IM: back pain - Neurological Neurological ROS: no dizziness, no focal weakness, no frequent falls, no headache(s) - Constitutional Vitals: Temp Pulse Resp BP Pulse Ox 98.6 F 87 18 98/71 95 09/06/17 02:26 09/06/17 02:26 09/06/17 02:26 09/06/17 02:26 09/06/17 02:26 General appearance: Present: mild distress, A&O X 3 - Head Head exam: Present: normal inspection - Eye Eye exam: Present: PERRL. Absent: scleral icterus Pupils: Present: normal accommodation - ENT ENT exam: Present: mucous membranes moist, normal oropharynx - Neck Neck exam general surgery: Present: full ROM, supple. Absent: lymphadenopathy - Respiratory Respiratory exam: Present: rhonchi. Absent: rales, respiratory distress, wheezes Additional comments: A-port in right upper chest without redness, pain, or swelling - Cardiovascular Cardiovascular exam: Present: RRR, +S1, +S2 - GI/Abdominal GI/Abdominal exam: Present: soft. Absent: tenderness - Back Exam Back exam: Absent: CVA tenderness (L), CVA tenderness (R) - Skin Skin exam: Present: dry, warm. Absent: rash Internal Med - H&P Results - Labs CBC & Chem 7: 09/05/17 22:05 09/05/17 22:05 - EKG Data -: EKG Interpreted by Myself - EKG Data EKG comments: 09/06/17 04:20 NSR; no acute changes. - Diagnostic Studies Chest x-ray Status: image reviewed by me (negative) - Attending Attestation I discussed the patient [place], PMH, ROS, lab data, and exam findings with Dr. Rebollar. I then saw and examined patient independently as well. Patient developed symptoms roughly 3 days ago and they have progressed. She developed fevers yesterday. She admits to productive cough. She denies vomiting or diarrhea. She denies any pain, redness, or swelling to her A-port site. She had her last chemotherapy treatment 3 days ago. Her imaging and exam do not suggest pneumonia. However, she's had fever and productive cough. We'll keep her on antibiotics and follow her clinically. Her blood counts will be monitored. To her knowledge, she has not had neutropenia yet. Other than my comments above and noted exam findings, I agree with Dr. Rebollar's assessment and plan.
[2017-09-06] MEDS ORDERED: methylPREDNISolone 125 MG/2 ML VIAL IVP ONE (02:15)
[2017-09-06] MEDS ORDERED: *HR* Morphine 2 MG/ML SYRINGE IVP PRN (02:21)
[2017-09-06] MEDS ORDERED: Nitroglycerin 0.4 MG TAB.SUBL SL PRN (02:21)
[2017-09-06] MEDS ORDERED: Ondansetron 4 MG/2 ML VIAL IVP PRN (02:21)
[2017-09-06] MEDS ORDERED: Magic Mouthwash 10 ML UD Cup PO PRN (02:23)
[2017-09-06] MEDS ORDERED: Ibuprofen 800 MG TABLET PO PRN (02:23)
[2017-09-06] MEDS ORDERED: *HR* OxyCODONE Immed Rel 5 MG TABLET PO PRN (02:23)
[2017-09-06] MEDS ORDERED: 0.9 % Sodium Chloride 1,000 ML IVC SCH (02:30)
[2017-09-06] MEDS ORDERED: Vancomycin (wt based) 1,000 MG VIAL IVPB SCH (03:00)
[2017-09-06] MEDS ORDERED: *HR* HYDROmorphone (PF) 1 MG/ML SYRINGE IVP PRN (03:38)
[2017-09-06] MEDS ORDERED: Ipratropium/Albuterol Neb 3 ML IH PRN (03:39)
[2017-09-06] MEDS: Albuterol 2.5 MG/3 ML NEBULIZER IH SCH ×5 (04:50→20:31)
[2017-09-06] MEDS: Nicotine 21 MG PATCH.TD24 TD SCH (05:05)
[2017-09-06 05:52] LABS: BUN/Creatinine Ratio 15 (6-26); Blood Urea Nitrogen 9 mg/dL (7-20); Carbon Dioxide 28 mEq/L (19-29); Chloride 109 mEq/L (98-109); Glucose 98 mg/dL (70-99); Magnesium 1.5 mg/dL (1.6-2.6); Osmolality,Calculated 289 (280-300); Potassium 3.6 mEq/L (3.5-4.5); Sodium 140 mEq/L (136-145); eGFR For African Americans > 60 (> 60); eGFR For Non-African Americans > 60 (> 60)
[2017-09-06] MEDS ORDERED: *HR* HYDROmorphone 2 MG TABLET PO SCH (06:00)
[2017-09-06] MEDS ORDERED: Piperacillin/Tazobactam 3.375 GM in D5% in Water (Mini-Bag+) 100 ML IVPB SCH (08:00)
[2017-09-06] MEDS ORDERED: Magnesium Sulfate 2 GM in D5% in Water 100 ML IVPB ONE (08:05)
[2017-09-06] MEDS ORDERED: HYDROMORPHONE HCL 8 MG PO SCH (09:00)
[2017-09-06] MEDS: GuaiFENesin/Dextromethorphan TABLET PO SCH ×2 (09:11→19:59)
[2017-09-06] MEDS: *HR* Rivaroxaban 10 MG TABLET PO SCH (09:11)
[2017-09-06] MEDS: Loratadine 10 MG TABLET PO SCH (09:11)
[2017-09-06] MEDS: Gabapentin 300 MG CAPSULE PO SCH ×2 (09:12→19:59)
[2017-09-06] MEDS: MethylPREDNISolone 40 MG/ML VIAL IVP SCH ×3 (09:12→19:59)
[2017-09-06] MEDS: Aspirin 81 MG TAB.CHEW PO SCH (09:12)
--- NOTE | 2017-09-06 09:44 | Event Note ---
Date of Encounter: 09/06/17 Time of Encounter: 09:25 47 year old female with h/o- left breast cancer, on chemoradiation, tobacco abuse, COPD, h/o- PE and anemia, admitted with right-sided chest pain and feeling unwell. Patient seen and examined at bedside. Very drowsy but able to answer questions appropriately. Awake, alert and oriented*3 Chest- S1, S2 heard; lungs are cleared to auscultation B/L Abdomen- soft, NT, ND Labs reviewed- Mg- 1.5, no leukocytosis; Troponin- around 0.11, BNP- 51; UA shows 5-15WBC CTA chest shows no PE, no infiltrates or pleural effusion Sepsis- possibly from UTI/bronchitis? Patient had fever, tachycardia, hypotension, improving with IV hydration. Continue IV steroids as patient is on steroids after chemotherapy. Monitor urine output closely and continue broad spectrum IV antibiotics- Vancomycin and Levaquin, given immunosuppresion from chemoradiation. F/up blood and urine cultures. Elevated Troponin- likely due to hypotension and sepsis. Left breast cancer- discussed pain management with patient; will start Oxycontin along with PRN low dose IV Dilaudid cautiously given hypotension.
[2017-09-06] MEDS: *HR* HYDROmorphone 2 MG TABLET PO PRN ×3 (10:50→19:59)
[2017-09-06] MEDS ORDERED: Aminoglycoside Consult 1 EACH MC ONE (12:11)
[2017-09-06] MEDS: ALPRAZolam 0.5 MG TABLET PO PRN (13:22)
[2017-09-06] MEDS: Vancomycin 1,000 MG in D5% in Water 250 ML IVPB SCH (13:22)
[2017-09-06 14:09] LABS: Basophils % 0.1 %; Hematocrit 30.5 % (35.3-44.9); Hemoglobin 10.3 g/dL (11.5-15.4); Immature Granulocytes % 0.1 % (0-4); Lymphocytes # 0.2 K/mcL (0.6-4.6); Lymphocytes % 2.5 %; Mean Corpuscular HGB Conc 33.8 g/dL (31.6-35.5); Mean Corpuscular Hemoglobin 32.2 pg (28.0-33.3); Mean Corpuscular Volume 95.3 fL (83.0-100.0); Mean Platelet Volume 9.9 fL (9.4-12.4); Monocytes % 0.4 %; Neutrophils # 6.6 K/mcL (1.6-8.9); Platelet Count 234 K/mcL (140-400); Red Cell Distribution Width 18.6 % (11.5-14.5); Segmented Neutrophils % 96.9 %
[2017-09-06 14:12] LABS: Platelet Estimate Normal (Normal)
[2017-09-06] MEDS: 0.9 % Sodium Chloride 1,000 ML IVC SCH (14:50)
[2017-09-06] MEDS: *HR* OxyCODONE ER (12 HR) 10 MG TABLET PO SCH ×2 (15:42→23:51)
[2017-09-07] MEDS: Albuterol 2.5 MG/3 ML NEBULIZER IH SCH ×3 (00:42→08:00)
[2017-09-07] MEDS: ALPRAZolam 0.5 MG TABLET PO PRN ×2 (00:59→12:04)
[2017-09-07] MEDS: *HR* HYDROmorphone 2 MG TABLET PO PRN ×3 (00:59→10:08)
[2017-09-07] MEDS: Vancomycin 1,000 MG in D5% in Water 250 ML IVPB SCH (01:00)
[2017-09-07] MEDS: MethylPREDNISolone 40 MG/ML VIAL IVP SCH ×2 (01:00→08:10)
[2017-09-07] MEDS ORDERED: Levofloxacin 750 MG/150 ML 750 MG/150 ML BAG IVPB SCH (01:00)
[2017-09-07] MEDS: 0.9 % Sodium Chloride 1,000 ML IVC SCH (01:01)
[2017-09-07 04:33] LABS: Hematocrit 28.4 % (35.3-44.9); Hemoglobin 9.7 g/dL (11.5-15.4); Immature Granulocytes % 0.6 % (0-4); Lymphocytes # 0.3 K/mcL (0.6-4.6); Lymphocytes % 2.4 %; Mean Corpuscular HGB Conc 34.2 g/dL (31.6-35.5); Mean Corpuscular Hemoglobin 32.2 pg (28.0-33.3); Mean Corpuscular Volume 94.4 fL (83.0-100.0); Mean Platelet Volume 9.6 fL (9.4-12.4); Monocytes # 0.1 K/mcL (0.0-1.3); Monocytes % 0.8 %; Platelet Count 227 K/mcL (140-400); Red Blood Count 3.01 M/mcL (3.82-4.97); Red Cell Distribution Width 18.6 % (11.5-14.5); Segmented Neutrophils % 96.2 %
[2017-09-07 04:45] LABS: BUN/Creatinine Ratio 21 (6-26); Blood Urea Nitrogen 11 mg/dL (7-20); Calcium 8.9 mg/dL (8.6-10.8); Carbon Dioxide 26 mEq/L (19-29); Chloride 108 mEq/L (98-109); Glucose 158 mg/dL (70-99); Magnesium 1.8 mg/dL (1.6-2.6); Osmolality,Calculated 293 (280-300); Potassium 3.9 mEq/L (3.5-4.5); Sodium 140 mEq/L (136-145); eGFR For African Americans > 60 (> 60); eGFR For Non-African Americans > 60 (> 60)
[2017-09-07] MEDS: Loratadine 10 MG TABLET PO SCH (08:10)
[2017-09-07] MEDS: *HR* Rivaroxaban 10 MG TABLET PO SCH (08:11)
[2017-09-07] MEDS: Gabapentin 300 MG CAPSULE PO SCH (08:11)
[2017-09-07] MEDS: Aspirin 81 MG TAB.CHEW PO SCH (08:11)
[2017-09-07] MEDS: *HR* OxyCODONE ER (12 HR) 10 MG TABLET PO SCH (08:11)
[2017-09-07] MEDS: GuaiFENesin/Dextromethorphan TABLET PO SCH (08:11)
[2017-09-07] MEDS: Nicotine 21 MG PATCH.TD24 TD SCH (08:11)
[2017-09-07] MEDS ORDERED: *HR* OxyCODONE ER (12 HR) 10 MG TABLET PO SCH (10:45)
[2017-09-07] MEDS ORDERED: MethylPREDNISolone 40 MG/ML VIAL IVP SCH (10:45)
[2017-09-07] MEDS ORDERED: Albuterol 2.5 MG/3 ML NEBULIZER IH PRN (10:58)
--- NOTE | 2017-09-07 11:10 | Discharge Summary ---
Date of Encounter: 09/07/17 Time of Encounter: 11:08 - Discharge Diagnosis (1) SIRS (systemic inflammatory response syndrome) Priority: Primary Status: Acute (2) Anemia Priority: Secondary Status: Chronic Qualifiers: Other causes of anemia: chronic disease, neoplastic Qualified Code(s): D63.0 - Anemia in neoplastic disease (3) UTI (urinary tract infection) Priority: Primary Status: Acute Qualifiers: Urinary tract infection type: acute cystitis Hematuria presence: without hematuria Qualified Code(s): N30.00 - Acute cystitis without hematuria (4) Anxiety Priority: Secondary Status: Chronic (5) Cancer associated pain Priority: Primary Status: Chronic (6) Acute exacerbation of chronic obstructive pulmonary disease (COPD) Priority: Primary Status: Acute (7) Elevated troponin Priority: Primary Status: Acute (8) Breast cancer in female Priority: Secondary Status: Chronic Qualifiers: Breast location: unspecified site of breast Estrogen receptor status: negative Laterality: right Qualified Code(s): C50.911 - Malignant neoplasm of unspecified site of right female breast; Z17.1 - Estrogen receptor negative status [ER-]; Z17.1 - Estrogen receptor negative status [ER-] - Discharge Medications Prescriptions: levoFLOXacin [Levaquin] 500 mg PO DAILY #7 tablet PredniSONE [Deltasone] 40 mg PO DAILY #10 tablet Home Medications: Escitalopram [Lexapro] 20 mg PO BID #60 tablet 05/04/17 [Rx] Ipratropium/Albuterol Neb [Duoneb] 3 ml IH [id number] PRN #100 inhsol 05/04/17 [Rx] Quetiapine Fumarate [Seroquel] 100 mg PO HS #30 tablet 05/04/17 [Rx] Loratadine [Claritin] 10 mg PO DAILY #90 tablet 05/18/17 [Rx] Magic Mouthwash [Magic Mouthwash BLM] 10 ml PO QID PRN #240 ml 05/18/17 [Rx] Ondansetron [Zofran] 8 mg PO Q8H PRN #90 tablet 05/18/17 [Rx] Promethazine [Phenergan] 25 mg PO Q6HR #40 tablet 07/13/17 [Rx] Ibuprofen 800 mg PO Q8H PRN 07/21/17 [History] Albuterol Sulfate [Albuterol Inhaler] 2 puff IH Q4HR PRN #1 hfa.aer.ad 08/18/17 [Rx] Gabapentin [Neurontin] 300 mg PO BID #60 capsule 08/18/17 [Rx] Hydromorphone HCl [Exalgo] 8 mg PO DAILY #30 tab.er.24h 08/25/17 [Rx] Omeprazole [PriLOSEC] 20 mg PO DAILY #90 cap 08/25/17 [Rx] ALPRAZolam [Xanax 0.5 MG Tablet] 0.5 mg PO Q6H PRN #90 tablet 08/27/17 [Rx] Rivaroxaban [Xarelto] 20 mg PO DAILY #30 tablet 08/27/17 [Rx] Oxycodone HCl [Oxaydo] 1 - 2 tab PO Q4-6H PRN #90 tablet.orl 09/03/17 [Rx] Pilocarpine HCl [Salagen] 5 mg PO TID 09/06/17 [History] PredniSONE [Deltasone] 40 mg PO DAILY #10 tablet 09/07/17 [Rx] levoFLOXacin [Levaquin] 500 mg PO DAILY #7 tablet 09/07/17 [Rx] Allergies/Adverse Reactions: 3 Allergy/AdvReac Type Severity Reaction Status Date / Time prochlorperazine AdvReac Intermediate Vomiting Verified 09/05/17 21:28 [From Compazine] tramadol AdvReac Intermediate Anxiety Verified 09/05/17 21:28 Date of admission: 09/06/17 03:40 Primary care physician: PCP NONE Consults: 09/06/17 03:48 Consult to Nutrition [CONS] Routine Comment: Consulting Provider: NUTRITION Reason for Dietary Consult: MST Score Diet Education Consult to Incendiaries Supervisor [CONS] Routine Reason for SW Consult: DISCHARGE PLANNING, NURSE NAVIGATOR SERVICES? Discharging clinician: Khushbu Andersen Anticipated date of discharge: 09/07/17 - Patient Status Disposition: Home, Self-Care Condition: Good Functional capacity at discharge: independent ambulation Overall status at discharge: patient is progressing back to baseline - Discharge Instructions Instructions: Sepsis (DC) Follow Up With: Denise Dominguez [employer] [facility] [Advanced Practice Nurse] - 09/28/17 11:45 am Additional Instructions: F/up with at [facility] as scheduled - Diet and Activity Activity: resume usual activities as tolerated Diet: advance to your usual diet, regular diet Hospital course: Ms. Sarkar is a 47 year old female with history of left breast cancer, on chemotherapy and radiation, presents with complaints of fever, chest pain and shortness of breath. Patient met SIRS criteria at admission with fever, tachycardia, tachypnea. Less likely sepsis. Fever could have been due to underlying mild UTI versus acute bronchitis and she was initially treated with broad-spectrum IV antibiotics-Levaquin and vancomycin due to immunosuppression. Blood cultures remained negative and patient significantly improved. She was also noted to have borderline low blood pressure at admission, which responded to IV hydration, she also previously received IV steroids. Patient is anxious to be discharged home today and is doing well clinically. She tolerates oral diet, saturating well on room air, no fever or leukocytosis and does have baseline tachycardia for several years now. She is being discharged on short course of oral steroids and antibiotics and recommended to follow up with primary care provider. Time spent discussing smoking cessation with patient: 3 to 10 minutes - Time Spent with Patient Total time spent providing and/or coordinating discharge services: Greater than 30 minutes (40 min) - Constitutional Vitals: Temp Pulse Resp BP Pulse Ox 97.8 F 96 14 120/83 97 09/07/17 07:20 09/07/17 08:05 09/07/17 07:20 09/07/17 07:20 09/07/17 07:20 General appearance: Present: A&O X 3, answers questions appropriately - Respiratory Respiratory exam: Present: CTAB. Absent: accessory muscle use, rales, rhonchi, wheezes - Cardiovascular Cardiovascular exam: Present: RRR, +S1, +S2, tachycardia. Absent: diastolic murmur, gallop, rubs, systolic murmur - VTE Reasons for not Prescribing Prophylaxis: Not indicated-Anticoagulated or INR therapeutic Documentation of Mechanical Device: Intermittent pneumatic compression device
[2017-09-07 11:55] VITALS: BP 113/78
--- NOTE | 2017-09-07 20:02 | Electrocardiograph Report ---
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
== END 2017-09-07 12:12 | disposition home or self-care (01) | DRG 720 ==
LOC: 2NNU 21:10 → EMEROO 21:10 → 2NNU 09-06 02:16
PROVIDERS: ADMIT Family Medicine; ATTEND Internal Medicine